=== PATIENT | male | born 1950 | race Caucasian/White ===

== ENCOUNTER 2017-02-03 14:06 | Emergency (ER) | payer BC, OTHER ==
[2017-02-03] MEDS ORDERED: Lidocaine 1% 50 ML MDV INJECT ONE (14:57)
--- NOTE | 2017-02-03 15:58 | CR ---
Left second finger: Four views of the left second finger were obtained. Fracture identified within the distal tuft of the second finger. Mild degenerative change noted within the PIP and DIP joint. Soft tissue swelling and injury is noted. No proximal bony abnormality otherwise seen. Impression: 1. Fracture within the distal tuft of the left second finger with soft tissue swelling/injury. 2. Incidental degenerative change. Diagnostic code #3
--- NOTE | 2017-02-03 16:06 | EDM.PDOC ---
ED HPI Skin/Rash - General Chief Complaint: Laceration Stated Complaint: LACERATION TO L INDEX FINGER Time Seen by Provider: 02/03/17 14:52 Source: Reports: Patient History Limitations: Reports: No limitations - History of Present Illness INITIAL COMMENTS - FREE TEXT/NARRATIVE: The patient presents with a laceration to this left index finger. The patient was using a table saw and he cut the left index finger. The tip is cut on the side. He is right handed. He thinks his tetanus was updated in October. Timing: Reports: still present Location, Skin: Reports: upper extremity, left (Index finger) Quality: Reports: Sharp Severity: severe Known Identified Source: yes Place of Occurrence: home Sick Contact: yes Associated Symptoms: Reports: no other symptoms - Related Data Allergies Allergy/AdvReac Type Severity Reaction Status Date / Time iodine Allergy Other Verified 02/03/17 14:34 sildenafil Allergy Other Verified 02/03/17 14:34 Home Meds: Ambulatory Orders Medication Instructions Recorded Confirmed Cholecalciferol (Vitamin D3) 500 mg PO DAILY 06/19/15 02/03/17 [Vitamin D3] Omeprazole Magnesium [Prilosec] 10 mg PO DAILY 06/19/15 02/03/17 Cephalexin [Keflex] 500 mg PO Q6HR #40 cap 02/03/17 ClonazePAM [KlonoPIN] 1 mg PO BEDTIME 02/03/17 02/03/17 oxyCODONE HCl/Acetaminophen 1 - 2 each PO Q6HR PRN #20 tablet 02/03/17 [Percocet 5-325 mg Tablet] Past Medical History Other HEENT History: wears eyeglasses Other Respiratory History: uses CPAP machine - Past Surgical History GI Surgical History: Reports: Hernia repair/other Musculoskeletal Surgical History: Reports: Other (see below) Other Musculoskeletal Surgeries/Procedures:: knee surgery Social & Family History - Tobacco Use Smoking Status *Q: Never Smoker - Caffeine Use Caffeine Use: Reports: Coffee - Recreational Drug Use Recreational Drug Use: No ED ROS GENERAL - Review of Systems Review Of Systems: See Below Constitutional: Reports: no symptoms HEENT: Reports: No symptoms Respiratory: Reports: No Symptoms Cardiovascular: Reports: No symptoms Endocrine: Reports: no symptoms GI/Abdominal: Reports: No symptoms : Reports: no symptoms Musculoskeletal: Reports: other (Left infex finger laceration) ED EXAM, SKIN/RASH Exam: See Below Exam Limited By: No limitations General Appearance: alert, no apparent distress Ears: normal external exam Nose: normal inspection Head: atraumatic, normocephalic Neck: normal inspection Respiratory/Chest: no respiratory distress, lungs clear, normal breath sounds Cardiovascular: regular rate, rhythm, no edema, no murmur Extremities: other (Left index finger has a laceration to the left distal finger. It is on the lateral edge of the nail. It is through the nail bed. He has good sensation to the part of the finger that is not cut. He can move the finger well.) ED SKIN PROCEDURES - Laceration/Wound Repair Left Finger Lac/wound length in cm: 2 Appearance: subcutaneous, irregular, clean, other (through the nail) Distal NVT: neuro & vascular intact, no tendon injury Anesthetic type: digital Local anesthesia - Lidocaine (Xylocaine): 1% plain Skin prep: saline Exploration/Debridement/Repair: wound explored, in a bloodless field, explored to base, other (Part of the nail needed to be removed) Closed with: sutures Suture size: 4-0 # of sutures: 6 Suture type: nylon, interrupted, simple Tetanus status addressed: Yes Complications: No Course - Vital Signs Last Recorded V/S: Last Vital Signs Temp 97.7 F 02/03/17 14:31 Pulse 63 02/03/17 14:31 Resp 16 02/03/17 14:31 BP 159/87 H 02/03/17 14:31 Pulse Ox 98 02/03/17 14:31 - Orders/Labs/Meds Meds: Medications Discontinued Medications Generic Name Dose Route Start Last Admin Trade Name Tj PRN Reason Stop Dose Admin Lidocaine HCl 50 ml 02/03/17 14:57 Xylocaine 1% INJECT 02/03/17 14:58 ONETIME ONE - Re-Assessments/Exams Free Text/Narrative Re-Assessment/Exam: 02/03/17 16:07 His x-ray shows he did get some of the bone. He has an open fracture. I sutured the wound. I will give him a shot of rocephin and get him on some keflex and something for pain. Departure - Departure Time of Disposition: 16:15 Disposition: Home, Self-Care 01 Condition: good Clinical Impression: Laceration of finger nail bed Qualifiers: Encounter type: initial encounter Qualified Code(s): S61.319A - Laceration without foreign body of unspecified finger with damage to nail, initial encounter Open fracture of finger of left hand Qualifiers: Encounter type: initial encounter Qualified Code(s): S62.609B - Fracture of unspecified phalanx of unspecified finger, initial encounter for open fracture Prescriptions: Cephalexin [Keflex] 500 mg PO Q6HR #40 cap oxyCODONE HCl/Acetaminophen [Percocet 5-325 mg Tablet] 1 - 2 each PO Q6HR PRN # 20 tablet PRN Reason: Pain Referrals: Tabatha Bray DO [Primary Care Provider] - 1 Week Lucas Love MD [Physician] - 1 Week Forms: ED Department Discharge Additional Instructions: Soak your finger in warm soapy water 2 times per day and apply antibiotic ointment after. Take the keflex 4 times per day. Take the percocet 1 to 2 pills every 6 hours as needed for pain. Follow up with Dr Love in 1 week. Please return if you are worse. Look for any sign of infection such as redness , swelling, pain or drainage.
[2017-02-03] MEDS ORDERED: cefTRIAXone 1 GM, Lidocaine 1% 2.1 ML IM SCH ×2 (16:30)
[2017-02-03 16:50] VITALS: BP 142/85
== END 2017-02-03 16:45 | disposition home or self-care (01) ==
LOC: JD.ED 14:06
DX: S62.631B Displaced fracture of distal phalanx of left index finger, initial encounter for open fracture (principal); W29.8XXA Contact with other powered hand tools and household machinery, initial encounter; Y92.009 Unspecified place in unspecified non-institutional (private) residence as the place of occurrence of the external cause; Z98.890 Other specified postprocedural states; Z79.899 Other long term (current) drug therapy; Z88.8 Allergy status to other drugs, medicaments and biological substances
CPT/HCPCS: 12001; 73140; 96372; 99283; J0696; 13132

== ENCOUNTER 2017-08-16 15:14 | Emergency (ER) | payer OTHER ==
[2017-08-16] MEDS ORDERED: Sodium Chloride 0.9% 1,000 ML IV SCH (16:30)
--- NOTE | 2017-08-16 16:34 | EDM.PDOC ---
ED HPI GENERAL MEDICAL PROBLEM - General Chief Complaint: Flank Pain Stated Complaint: LOWER BACK/GROIN PAIN Time Seen by Provider: 08/16/17 16:06 Source of Information: Reports: Patient, Family (), RN Notes Reviewed History Limitations: Reports: No Limitations - History of Present Illness INITIAL COMMENTS - FREE TEXT/NARRATIVE: The patient states that he developed low back pain that wrapped around his lower abdomen, bilaterally, to his suprapubic region, suddenly, around 09:30 this morning, while the patient was eating breakfast. The pain is made worse if he moves, but he has not identified any other modifiers. No recent fever, nausea , vomiting, constipation, diarrhea, or urinary symptoms. No prior similar symptoms. The patient's PCP is Dr. Bray at the [place]. 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 Bilateral Flank Pain Score (Numeric/FACES): 9 - Related Data Allergies Allergy/AdvReac Type Severity Reaction Status Date / Time iodine Allergy Other Verified 02/03/17 14:34 sildenafil Allergy Other Verified 02/03/17 14:34 Home Meds: Home Meds Cholecalciferol (Vitamin D3) [Vitamin D3] 500 mg PO DAILY 06/19/15 [History] Omeprazole Magnesium [Prilosec] 10 mg PO BID 06/19/15 [History] Past Medical History HEENT History: Reports: Impaired Vision Other HEENT History: wears eyeglasses Respiratory History: Reports: Sleep Apnea (nightly CPAP) Gastrointestinal History: Reports: GERD Musculoskeletal History: Reports: Arthritis Psychiatric History: Reports: PTSD, Other (See Below) (Insomnia) Endocrine/Metabolic History: Reports: Obesity/BMI 30+ Dermatologic History: Reports: Seborrheic Dermatitis - Past Surgical History HEENT Surgical History: Reports: Oral Surgery (Dental extractions) GI Surgical History: Reports: Hernia, Inguinal (bilateral x 2) Musculoskeletal Surgical History: Reports: Arthroscopic Knee Social & Family History - Family History Family Medical History: Noncontributory - Tobacco Use Smoking Status *Q: Never Smoker - Caffeine Use Caffeine Use: Reports: Coffee - Alcohol Use Alcohol Use History: Yes Alcohol Use Frequency: Rarely - Recreational Drug Use Recreational Drug Use: No - Living Situation & Occupation Living situation: Reports: , with Spouse 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) ED ROS GENERAL - Review of Systems Review Of Systems: See Below Constitutional: Reports: No Symptoms HEENT: Reports: Sinus Problem (sinusitis since Sep 2016) Respiratory: Reports: No Symptoms Cardiovascular: Reports: No Symptoms Endocrine: Reports: No Symptoms GI/Abdominal: Reports: No Symptoms : Reports: No Symptoms Musculoskeletal: Reports: No Symptoms Skin: Reports: No Symptoms Neurological: Reports: No Symptoms Psychiatric: Reports: No Symptoms Hematologic/Lymphatic: Reports: No Symptoms Immunologic: Reports: No Symptoms ED EXAM, GI/ABD - Physical Exam Exam: See Below Exam Limited By: No Limitations General Appearance: Alert, WD/WN, No Apparent Distress Eyes: Bilateral: Normal Appearance, EOMI Ears: Normal External Exam, Hearing Grossly Normal Nose: Normal Inspection, No Blood Throat/Mouth: Normal Inspection, Normal Lips, Normal Voice, No Airway Compromise Head: Atraumatic, Normocephalic Neck: Normal Inspection, Full Range of Motion Respiratory/Chest: No Respiratory Distress, Lungs Clear, Normal Breath Sounds, No Accessory Muscle Use Cardiovascular: Normal Peripheral Pulses, Regular Rate, Rhythm, No Gallop, No JVD, No Murmur, No Rub GI/Abdominal Exam: Normal Bowel Sounds, Soft, No Organomegaly, No Distention, No Abnormal Bruit, No Mass, Tender (Left lower quadrant only. Nontender elsewhere.), Other (Obese) (Male) Exam: Deferred Rectal (Males) Exam: Deferred Back Exam: Normal Inspection, Full Range of Motion, Other (Straight leg raise induces pain in the left lower quadrant, bilaterally). No: CVA Tenderness (L), CVA Tenderness (R), Paraspinal Tenderness, Vertebral Tenderness Extremities: Normal Inspection, Normal Range of Motion, No Pedal Edema, Normal Capillary Refill Neurological: Alert, Oriented, Normal Cognition, No Motor/Sensory Deficits Psychiatric: Normal Affect Skin Exam: Warm, Dry, Intact, Normal Color, No Rash Course - Vital Signs Last Recorded V/S: Last Vital Signs Temp 36.8 C 08/16/17 15:38 Pulse 80 08/16/17 19:49 Resp 16 08/16/17 19:49 BP 165/81 H 08/16/17 19:49 Pulse Ox 99 08/16/17 19:49 - Orders/Labs/Meds Labs: Laboratory Tests 08/16/17 08/16/17 08/16/17 Range/Units 16:40 16:40 16:49 WBC 6.82 (4.23-9.07) K/mm3 RBC 5.31 (4.63-6.08) M/mm3 Hgb 16.2 (13.7-17.5) gm/L Hct 46.7 (40.1-51.0) % MCV 87.9 (79.0-92.2) fl MCH 30.5 (25.7-32.2) pg MCHC 34.7 (32.2-35.5) g/dl RDW Std Deviation 41.8 (35.1-43.9) fL Plt Count 193 (163-337) K/mm3 MPV 10.1 (9.4-12.3) fl Neutrophils % (Manual) 55 (40-60) % Band Neutrophils % 0 (0-10) % Lymphocytes % (Manual) 25 (20-40) % Atypical Lymphs % 0 % Monocytes % (Manual) 11 H (2-10) % Eosinophils % (Manual) 6 (0.8-7.0) % Basophils % (Manual) 2 H (0.2-1.2) Myelocytes % 1 Platelet Estimate Adequate RBC Morph Comment Normal Sodium 142 (136-145) mEq/L Potassium 3.9 (3.5-5.1) mEq/L Chloride 104 (98-107) mEq/L Carbon Dioxide 26 (21-32) mEq/L Anion Gap 15.9 H (5-15) BUN 19 H (7-18) mg/dL Creatinine 1.3 (0.7-1.3) mg/dL Est Cr Clr Drug Dosing 67.59 mL/min Estimated GFR (MDRD) 55 (>60) mL/min BUN/Creatinine Ratio 14.6 (14-18) Glucose 93 (80-115) mg/dL Calcium 9.0 (8.5-10.1) mg/dL Total Bilirubin 0.7 (0.2-1.0) mg/dL AST 20 (15-37) U/L ALT 27 (16-63) U/L Alkaline Phosphatase 85 (46-116) U/L Total Protein 7.2 (6.4-8.2) g/dl Albumin 3.9 (3.4-5.0) g/dl Globulin 3.3 gm/dL Albumin/Globulin Ratio 1.2 (1-2) Lipase 139 (73-393) U/L Urine Color Yellow (Yellow) Urine Appearance Clear (Clear) Urine pH 6.0 (5.0-8.0) Ur Specific [place] 1.010 (1.005-1.030) Urine Protein Negative (Negative) Urine Glucose (UA) Negative (Negative) Urine Ketones Negative (Negative) Urine Occult Blood Negative (Negative) Urine Nitrite Negative (Negative) Urine Bilirubin Negative (Negative) Urine Urobilinogen 0.2 (0.2-1.0) Ur Leukocyte Esterase Negative (Negative) Urine RBC Not seen (0-5) /hpf Urine WBC 0-5 (0-5) /hpf Ur Epithelial Cells 0-5 (0-5) /hpf Urine Bacteria Not seen (FEW) /hpf Urine Mucus Not seen (FEW) /hpf Meds: Medications Discontinued Medications Generic Name Dose Route Start Last Admin Trade Name Freq PRN Reason Stop Dose Admin Diatrizoate Meglum/Diatrizoate Sod 90 ml 08/16/17 17:54 08/16/17 18:08 Gastrografin 37% PO 08/16/17 17:55 90 ml ONETIME ONE Administration Diphenhydramine HCl 50 mg 08/16/17 17:11 08/16/17 17:39 Benadryl IVPUSH 08/16/17 17:12 50 mg ONETIME ONE Administration Sodium Chloride 1,000 mls @ 150 mls/hr 08/16/17 16:30 08/16/17 16:45 Normal Saline IV 150 mls/hr ASDIRECTED PERRI Administration Sodium Chloride 100 mls @ 60 mls/hr 08/16/17 18:00 08/16/17 18:09 Normal Saline IV 60 mls/hr ASDIRECTED PERRI Administration Iopamidol 125 ml 08/16/17 17:54 08/16/17 18:08 Isovue-300 (61%) IVPUSH 08/16/17 17:55 125 ml ONETIME ONE Administration Methylprednisolone Sodium Succinate 125 mg 08/16/17 17:11 08/16/17 17:40 Solu-Medrol IVPUSH 08/16/17 17:12 125 mg ONETIME ONE Administration Sodium Chloride 10 ml 08/16/17 17:54 08/16/17 18:08 Saline Flush FLUSH 08/16/17 17:55 10 ml ONETIME ONE Administration - Re-Assessments/Exams Free Text/Narrative Re-Assessment/Exam: 08/16/17 17:12 The patient reports an allergy to iodinated contrast. When asked about this, he states that he underwent a coronary angiogram in [place] around 2009. About 1 hour later, his face and eyes swelled, and he was itchy. He was given an injection of some medicine, which resolved his symptoms, however, they recurred about 90 minutes later. He then came to this ED, where he was again given an injection, and his symptoms resolved. The patient acknowledges that he received other medications besides iodinated contrast when he had the coronary angiogram. He states that at no other time before or since had he ever received iodinated contrast, such as for an IV pyelogram or CT scan. He also states that he has not received any narcotics since then, either. I suspect that the patient's reaction in 2009 was not an allergic reaction to iodinated contrast, as he had not previously been exposed to it. Further, his symptoms would not have resolved quickly after a single injection of a medication if it were a genuine allergic reaction. I think it is more likely that he suffered a reaction to an opioid given at the time of the coronary angiogram, not a genuine allergic reaction, and that he was given Benadryl, which would treat the histamine release caused by opioids. I discussed this with the patient, and advised that we proceed with the iodinated contrast, however, I also recommended that we pretreat with IV Benadryl and IV Solu- Medrol. The patient has agreed. 08/16/17 19:09 CT of the abdomen and pelvis with oral and IV contrast is read by Dr. Camacho as: 1. Small area of bowel wall thickening having an apple core appearance within the sigmoid colon. This may represent spasm although difficult to exclude neoplasm. Sigmoidoscopy strongly recommended to hopefully exclude neoplasm. 2. Other incidental findings. Nothing acute is seen. 08/16/17 19:20 The above was discussed with Dr. Shen, who can see the patient as early as tomorrow, to arrange for colonoscopy with biopsies. The above was then discussed with the patient and his . He suffered no adverse effects from the iodinated contrast, virtually confirming that he is not allergic to iodinated contrast. As above, I suspect that the reaction that he suffered in 2009 was to an opioid. I am therefore not recommending that he not be prescribed any opioids. Departure - Departure Time of Disposition: 19:22 Disposition: Home, Self-Care 01 Condition: Good Clinical Impression: Left lower quadrant abdominal pain of unknown etiology, Sigmoid stricture - Discharge Information Instructions: Abdominal Pain, Adult, [id number] Referrals: PCP,None [Primary Care Provider] - Alirio Shen MD [Physician] - Forms: ED Department Discharge Additional Instructions: You were seen in the emergency room for pain felt in your lower back, wrapping around to your lower abdomen. On physical examination, you had tenderness to your lower left abdomen. Workup in the ER included blood work, a urinalysis, and a CT scan of your abdomen and pelvis. Your blood work and urine were normal, however, the CT scan found a small area of bowel wall thickening having an apple core appearance within the sigmoid colon. This finding is concerning for colon cancer, although could be due to something else. Follow-up with the Surgeon Dr. Shen at the next available appointment, to arrange for a colonoscopy with biopsy. Take [id number] Tylenol or ibuprofen as needed for discomfort. If any other problems, please do not hesitate to return to the ER.
[2017-08-16] MEDS ORDERED: diphenhydrAMINE 50 MG/ML SDV IVPUSH ONE (17:11)
[2017-08-16] MEDS ORDERED: methylPREDNISolone Sodium Succinate 125 MG/2 ML SDV IVPUSH ONE (17:11)
[2017-08-16] MEDS ORDERED: Iopamidol 612 MG/ML 150 ML Bottle IVPUSH ONE (17:54)
[2017-08-16] MEDS ORDERED: Sodium Chloride 0.9% 10 ML Syringe FLUSH ONE (17:54)
[2017-08-16] MEDS ORDERED: Diatrizoate Meglumine/Diatrizoate Sodium 37% 120 ML Bottle PO ONE (17:54)
[2017-08-16] MEDS ORDERED: Sodium Chloride 0.9% 100 ML IV SCH (18:00)
--- NOTE | 2017-08-16 18:50 | CT ---
CT abdomen and pelvis Technique: Multiple axial sections were obtained from the top the liver inferiorly through the pubic symphysis. Intravenous and oral contrast was utilized. Delayed images were also obtained through the bladder. Findings: Small portion of the visualized lung bases shows nothing acute. Small low-density finding is seen within the right lobe of the liver measuring approximately 1 cm having Hounsfield unit measurements of a cyst. Smaller low-density finding is noted within the liver measuring 5 mm which is too small to characterize by Hounsfield unit measurements but most likely represents an additional cyst. Gallbladder shows no calcified gallstones. Spleen appears within normal limits. Adrenal glands show no nodule. Kidneys show symmetric contrast enhancement without hydronephrosis or mass. Aorta shows ectasia without aneurysmal dilatation. Atherosclerotic calcification is also seen within the aorta. Pancreas is within normal limits. No retroperitoneal adenopathy or mesenteric abnormalities are seen. Appendix is seen which appears normal. Surgical material is seen within the left groin. Prostate gland is mildly prominent which contains calcifications. No diverticulosis or diverticulitis is seen. There is a small focal area of bowel wall thickening seen within the sigmoid colon having a circumferential apple core lesion appearance and difficult to exclude neoplasm. No additional abnormality is seen within the colon. No free fluid or inflammatory change is seen. Moderately large hiatal hernia is present. Delayed images shows contrast within both distal ureters and within the bladder. Bone window settings were reviewed which shows mild scattered degenerative change within the spine. Impression: 1. Small area of bowel wall thickening having an apple core appearance within the sigmoid colon. This may represent spasm although difficult to exclude neoplasm. Sigmoidoscopy strongly recommended to hopefully exclude neoplasm. 2. Other incidental findings. Nothing acute is seen. Diagnostic code #9
[2017-08-16 19:49] VITALS: BP 165/81
== END 2017-08-16 19:30 | disposition home or self-care (01) ==
LOC: JD.ED 15:14
DX: K56.699 Other intestinal obstruction unspecified as to partial versus complete obstruction (principal); Z79.899 Other long term (current) drug therapy; Z88.8 Allergy status to other drugs, medicaments and biological substances
CPT/HCPCS: 36415; 74177; 80053; 81001; 83690; 85025; 96361; 96374; 96375; 99284; J1200; J2930; J7030; J7040; J7050; Q9963; Q9967

== ENCOUNTER 2018-12-12 17:49 | Emergency (ER) | payer OTHER ==
[2018-12-12 18:41] VITALS: BP 175/88
--- NOTE | 2018-12-12 19:03 | EDM.PDOC ---
ED HPI GENERAL MEDICAL PROBLEM - General Chief Complaint: Genitourinary Problem Stated Complaint: POSS BLADDER INFECTION Time Seen by Provider: 12/12/18 18:53 - History of Present Illness INITIAL COMMENTS - FREE TEXT/NARRATIVE: 68-year-old male presents emergency room with burning and frequency with urination. This is been going on for the last couple of days. He is not certain he's been able to empty completely. He's felt a little warm but no fevers or chills. He has some discomfort with urination. No significant flank discomfort or back pain. - Related Data Allergies Allergy/AdvReac Type Severity Reaction Status Date / Time iodine Allergy Other Verified 10/31/18 12:40 sildenafil Allergy Other Verified 10/31/18 12:40 seafood Allergy Hives Uncoded 10/31/18 12:40 Home Meds: Home Meds Cholecalciferol (Vitamin D3) [Vitamin D3] 500 mg PO DAILY 06/19/15 [History] Omeprazole Magnesium [Prilosec] 10 mg PO BID 06/19/15 [History] FA/Lycopene/Lut/MV,Ca,Iron,Min [Centrum] 1 tab PO DAILY 10/31/18 [History] Meclizine HCl 25 mg PO BID PRN #20 tab.chew 10/31/18 [Rx] Ondansetron [Zofran ODT] 4 mg PO Q6H PRN #12 tab.dis 10/31/18 [Rx] Nitrofurantoin Monohyd/M-Cryst [Macrobid 100 mg Capsule] 100 mg PO Q12H #14 capsule 12/12/18 [Rx] Past Medical History HEENT History: Reports: Impaired Vision Other HEENT History: wears eyeglasses Respiratory History: Reports: Sleep Apnea Other Respiratory History: uses CPAP machine Gastrointestinal History: Reports: GERD Genitourinary History: Reports: Pyelonephritis, UTI, Recurrent Musculoskeletal History: Reports: Arthritis Psychiatric History: Reports: PTSD, Other (See Below) Endocrine/Metabolic History: Reports: Obesity/BMI 30+ Dermatologic History: Reports: Seborrheic Dermatitis - Past Surgical History HEENT Surgical History: Reports: Oral Surgery GI Surgical History: Reports: Hernia, Inguinal Musculoskeletal Surgical History: Reports: Arthroscopic Knee Social & Family History - Family History Family Medical History: Noncontributory - Caffeine Use Caffeine Use: Reports: Coffee - Living Situation & Occupation Living situation: Reports: , with Spouse 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 Denies: Flank Pain, Hematuria Musculoskeletal: Reports: No Symptoms Skin: Reports: No Symptoms Neurological: Reports: No Symptoms ED EXAM, RENAL/ - Physical Exam Exam: See Below Exam Limited By: Uncooperative General Appearance: Alert, No Apparent Distress Head: Atraumatic, Normocephalic Neck: Normal Inspection, Supple, Non-Tender, Full Range of Motion Respiratory/Chest: No Respiratory Distress, Lungs Clear, Normal Breath Sounds Cardiovascular: Regular Rate, Rhythm, No Edema, No Murmur GI/Abdominal: Normal Bowel Sounds, Soft, Non-Tender, Other (Suprapubic discomfort) Back Exam: Normal Inspection. No: CVA Tenderness (L), CVA Tenderness (R) Course - Vital Signs Last Recorded V/S: Last Vital Signs Temp 37.7 C 12/12/18 18:39 Pulse 88 12/12/18 18:39 Resp 18 12/12/18 18:39 BP 175/88 H 12/12/18 18:39 Pulse Ox 100 12/12/18 18:39 - Orders/Labs/Meds Orders: Active Orders 24 hr Category Date Time Status CULTURE URINE [RM] Stat Lab 12/12/18 18:37 Received Labs: Laboratory Tests 12/12/18 Range/Units 18:37 Urine Color Yellow (Yellow) Urine Appearance Cloudy H (Clear) Urine pH 6.0 (5.0-8.0) Ur Specific [place] > or = 1.030 (1.005-1.030) Urine Protein 2+ H (Negative) Urine Glucose (UA) Negative (Negative) Urine Ketones Negative (Negative) Urine Occult Blood 3+ H (Negative) Urine Nitrite Negative (Negative) Urine Bilirubin Negative (Negative) Urine Urobilinogen 0.2 (0.2-1.0) Ur Leukocyte Esterase 1+ H (Negative) Urine RBC >100 H (0-5) /hpf Urine WBC 40-50 H (0-5) /hpf Ur Epithelial Cells 0-5 (0-5) /hpf Urine Bacteria Few (FEW) /hpf Urine Mucus Not seen (FEW) /hpf - Re-Assessments/Exams Free Text/Narrative Re-Assessment/Exam: 12/12/18 19:58 Gentleman was bladder scanned no postvoid residual urinalysis is strongly suggestive of infectious process we'll start him on Macrobid Departure - Departure Time of Disposition: 19:58 Disposition: Home, Self-Care 01 Clinical Impression: UTI (urinary tract infection) - Discharge Information Prescriptions: Nitrofurantoin Monohyd/M-Cryst [Macrobid 100 mg Capsule] 100 mg PO Q12H #14 capsule Referrals: Mckenzie Rocha MD [Primary Care Provider] - Forms: ED Department Discharge Additional Instructions: Return to the emergency room with any questions problems worsening symptoms. Take the antibiotics as directed. Follow-up in the clinic 3-5 days after finishing the antibiotics. - My Orders Last 24 Hours: My Active Orders 12/12/18 18:37 CULTURE URINE [RM] Stat - Assessment/Plan Last 24 Hours: My Active Orders 12/12/18 18:37 CULTURE URINE [RM] Stat
== END 2018-12-12 20:14 | disposition home or self-care (01) ==
LOC: JD.ED 17:49
DX: N39.0 Urinary tract infection, site not specified (principal); Z91.013 Allergy to seafood; Z88.8 Allergy status to other drugs, medicaments and biological substances
CPT/HCPCS: 51798; 81001; 87086; 87088; 87186; 99283

== ENCOUNTER 2018-12-13 16:34 | Inpatient (IN) | payer OTHER, MEDICARE ==
[2018-12-13] MEDS ORDERED: Metoclopramide 10 MG/2 ML SDV IVPUSH ONE (17:08)
[2018-12-13] MEDS ORDERED: Acetaminophen 325 MG Tab PO ONE (17:12)
--- NOTE | 2018-12-13 17:13 | EDM.PDOC ---
ED HPI GENERAL MEDICAL PROBLEM - General Chief Complaint: Genitourinary Problem Stated Complaint: [facility]ABDOMINAL PAIN Time Seen by Provider: 12/13/18 17:07 Source of Information: Reports: Patient, Family (spouse) History Limitations: Reports: No Limitations - History of Present Illness INITIAL COMMENTS - FREE TEXT/NARRATIVE: 68-year-old male presented to the ED last night with urinary urgency frequency and dysuria. Diagnosed with urinary tract infection and was started on Macrobid 100 mg twice a day. He states that around mid 90s he started to develop significant rigors and chills which continue until seen in the ED now. He had a little bit of breakfast which she brought up around 1:00 today and has not been able to keep anything down since. Continues to have dry heaves. No diarrhea. He' s had riders and severe chills today as well. Patient most likely has significant prostatitis and clinically has bilateral pyelonephritis. History of BPH. No history of previous urinary tract infections. Patient has appreciated blood in his urine. He denies any cough or sputum production. Onset: Sudden Onset Date: 12/11/18 Duration: Day(s):, Constant, Getting Worse Location: Reports: Other (Urinary urgency frequency and dysuria now with fever chills and rigors.) Quality: Reports: Other (Urinary frequency urgency and dysuria) Severity: Severe (with severe burning with urination) Improves with: Reports: None Worsens with: Reports: None Context: Reports: Other (Carol's occurrence 2 days ago). Denies: Activity, Exercise, Lifting, Sick Contact, Trauma Associated Symptoms: Reports: No Other Symptoms, Fever/Chills (Nausea and vomiting today associated with fever chills and rigors), Loss of Appetite, Malaise, Nausea/Vomiting, Weakness. 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: Reports: Other (see below) (Nothing will stay down) Abdomen Pain Score (Numeric/FACES): 6 - Related Data Allergies Allergy/AdvReac Type Severity Reaction Status Date / Time iodine Allergy Other Verified 12/13/18 00:10 sildenafil Allergy Other Verified 12/13/18 00:10 seafood Allergy Hives Uncoded 12/13/18 00:10 Home Meds: Home Meds Cholecalciferol (Vitamin D3) [Vitamin D3] 500 mg PO DAILY 06/19/15 [History] Omeprazole Magnesium [Prilosec] 10 mg PO BID 06/19/15 [History] FA/Lycopene/Lut/MV,Ca,Iron,Min [Centrum] 1 tab PO DAILY 10/31/18 [History] Nitrofurantoin Monohyd/M-Cryst [Macrobid 100 mg Capsule] 100 mg PO Q12H #14 capsule 12/12/18 [Rx] Past Medical History HEENT History: Reports: Impaired Vision Other HEENT History: wears eyeglasses Respiratory History: Reports: Sleep Apnea Other Respiratory History: uses CPAP machine Gastrointestinal History: Reports: GERD Genitourinary History: Reports: Pyelonephritis, UTI, Recurrent Musculoskeletal History: Reports: Arthritis Psychiatric History: Reports: PTSD, Other (See Below) Endocrine/Metabolic History: Reports: Obesity/BMI 30+ Dermatologic History: Reports: Seborrheic Dermatitis - Past Surgical History HEENT Surgical History: Reports: Oral Surgery GI Surgical History: Reports: Hernia, Inguinal Musculoskeletal Surgical History: Reports: Arthroscopic Knee Social & Family History - Family History Family Medical History: Noncontributory - Caffeine Use Caffeine Use: Reports: None - Living Situation & Occupation Living situation: Reports: , with Spouse 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 Denies: Wheezing, Pleuritic Chest Pain, Cough, Sputum, Hemoptysis Cardiovascular: Reports: Dyspnea on Exertion, Lightheadedness. Denies: Chest Pain, Blood Pressure Problem Endocrine: Reports: Fatigue GI/Abdominal: Reports: Abdominal Pain, Decreased Appetite (Nothing will stay down today), Nausea, Vomiting. Denies: Constipation (Epigastric pain from recurrent vomiting.), Diarrhea : Reports: Dysuria, Frequency, Urgency, Other (Diagnosed with GRIS last night in the ED. Placed on Macrobid 100 mg twice a day which she's had one pill. The urinalysis grew out gram-negative rods 80-90,000 colony-forming units per ml. Likely Escherichia coli. Of note he reports no symptoms of prostatism. He states he may get up once at night to void only. Stream is good.) Musculoskeletal: Reports: Muscle Pain Skin: Reports: No Symptoms (Generalized myalgia) Neurological: Reports: Dizziness, Weakness Psychiatric: Reports: No Symptoms (Instituted fever and chills) Hematologic/Lymphatic: Reports: No Symptoms Immunologic: Reports: No Symptoms ED EXAM, RENAL/ - Physical Exam Exam: See Below Exam Limited By: No Limitations General Appearance: Alert, WD/WN, Moderate Distress, Other (Feels very warm to palpation temp jitters 103.2. Pulse is 96. Respiratory is 22 sets only 90% on room air.) Eye Exam: Bilateral Eye: Normal Inspection Ears: Normal TMs Throat/Mouth: Normal Inspection, Normal Lips, Normal Oropharynx, Normal Voice ( Tongue is mildly dry and coated), Other Head: Atraumatic, Normocephalic Neck: Normal Inspection, Supple, Non-Tender, Full Range of Motion. No: Lymphadenopathy (L), Lymphadenopathy (R) Respiratory/Chest: Lungs Clear, No Accessory Muscle Use, Chest Non-Tender, Respiratory Distress (Dictated make 22-26/m with O2 sats of 90% on room air) Cardiovascular: Regular Rate, Rhythm, No Edema (Resting tachycardia of 10 2/m), No Gallop, No Murmur, No Rub, Tachycardia GI/Abdominal: Normal Bowel Sounds, Soft, Non-Tender, No Organomegaly, No Abnormal Bruit, No Mass, Pelvis Stable (Male) Exam: No Hernia. No: Circumcised Back Exam: CVA Tenderness (L), CVA Tenderness (R) Extremities: Normal Inspection, Normal Range of Motion, Non-Tender, No Pedal Edema, Normal Capillary Refill Neurological: Alert, Oriented, CN II-XII Intact, Normal Cognition, Normal Gait, No Motor/Sensory Deficits Psychiatric: Normal Affect, Normal Mood, Other Skin Exam: Warm (Very warm to palpation), Dry, Intact, Normal Color, No Rash EKG INTERPRETATION EKG Date: 12/13/18 Time: 17:15 Rhythm: NSR Rate (Beats/Min): 90 [place]: Normal P-Wave: Present (First-degree AV block.) QRS: Other (Early R-wave transition consider septal hypertrophy pattern) ST-T: Normal QT: Normal EKG Interpretation Comments: Borderline ECG Course - Vital Signs Last Recorded V/S: Last Vital Signs Temp 38.8 C H 12/13/18 16:49 Pulse 96 12/13/18 16:49 Resp 22 H 12/13/18 16:49 BP 147/82 H 12/13/18 16:49 Pulse Ox 90 L 12/13/18 16:49 - Orders/Labs/Meds Orders: Active Orders 24 hr Category Date Time Status Admission Status [Patient Status] [ADT] Routine ADT 12/13/18 19:14 Ordered EKG Documentation Completion [RC] STAT Care 12/13/18 17:10 Active CULTURE BLOOD [BC] Stat Lab 12/13/18 17:31 Received CULTURE BLOOD [BC] Stat Lab 12/13/18 17:41 Received URINALYSIS W/O MICROSCOPIC [UA W/O MICROSCOPIC] [URIN] Lab 12/13/18 18:41 Received Stat Dextrose 5%-0.9% NaCl [Dextrose 5%-Normal Saline] 1,000 Med 12/13/18 17:15 Active ml IV ASDIRECTED Blood Culture x2 Reflex Set [OM.PC] Stat Oth 12/13/18 17:10 Ordered Medication Orders Dextrose/Sodium Chloride (Dextrose 5%-Normal Saline) 1,000 mls @ 250 mls/hr IV ASDIRECTED PERRI Last Admin: 12/13/18 18:14 Dose: 250 mls/hr Labs: Laboratory Tests 12/13/18 12/13/18 12/13/18 Range/Units 17:31 17:31 17:31 WBC 17.46 H (4.23-9.07) K/mm3 RBC 4.94 (4.63-6.08) M/mm3 Hgb 15.1 (13.7-17.5) gm/L Hct 43.9 (40.1-51.0) % MCV 88.9 (79.0-92.2) fl MCH 30.6 (25.7-32.2) pg MCHC 34.4 (32.2-35.5) g/dl RDW Std Deviation 42.7 (35.1-43.9) fL Plt Count 198 (163-337) K/mm3 MPV 10.3 (9.4-12.3) fl Neutrophils % (Manual) 85 H (40-60) % Band Neutrophils % 1 (0-10) % Lymphocytes % (Manual) 4 L (20-40) % Atypical Lymphs % 0 % Monocytes % (Manual) 10 (2-10) % Eosinophils % (Manual) 0 L (0.8-7.0) % Basophils % (Manual) 0 L (0.2-1.2) Platelet Estimate Adequate RBC Morph Comment Normal Sodium 135 L (136-145) mEq/L Potassium 3.8 (3.5-5.1) mEq/L Chloride 101 (98-107) mEq/L Carbon Dioxide 24 (21-32) mEq/L Anion Gap 13.8 (5-15) BUN 15 (7-18) mg/dL Creatinine 1.5 H (0.7-1.3) mg/dL Est Cr Clr Drug Dosing 57.75 mL/min Estimated GFR (MDRD) 46 (>60) mL/min BUN/Creatinine Ratio 10.0 L (14-18) Glucose 179 H (80-115) mg/dL Lactic Acid (0.4-2.0) mmol/L Calcium 9.0 (8.5-10.1) mg/dL Magnesium 1.7 L (1.8-2.4) mg/dl Total Bilirubin 1.8 H (0.2-1.0) mg/dL AST 29 (15-37) U/L ALT 27 (16-63) U/L Alkaline Phosphatase 92 (46-116) U/L C-Reactive Protein 20.8 H* (<1.0) mg/dL NT-Pro-B Natriuret Pep 353 H (0-125) pg/mL Total Protein 7.5 (6.4-8.2) g/dl Albumin 3.6 (3.4-5.0) g/dl Globulin 3.9 gm/dL Albumin/Globulin Ratio 0.9 L (1-2) 12/13/18 Range/Units 17:41 WBC (4.23-9.07) K/mm3 RBC (4.63-6.08) M/mm3 Hgb (13.7-17.5) gm/L Hct (40.1-51.0) % MCV (79.0-92.2) fl MCH (25.7-32.2) pg MCHC (32.2-35.5) g/dl RDW Std Deviation (35.1-43.9) fL Plt Count (163-337) K/mm3 MPV (9.4-12.3) fl Neutrophils % (Manual) (40-60) % Band Neutrophils % (0-10) % Lymphocytes % (Manual) (20-40) % Atypical Lymphs % % Monocytes % (Manual) (2-10) % Eosinophils % (Manual) (0.8-7.0) % Basophils % (Manual) (0.2-1.2) Platelet Estimate RBC Morph Comment Sodium (136-145) mEq/L Potassium (3.5-5.1) mEq/L Chloride (98-107) mEq/L Carbon Dioxide (21-32) mEq/L Anion Gap (5-15) BUN (7-18) mg/dL Creatinine (0.7-1.3) mg/dL Est Cr Clr Drug Dosing mL/min Estimated GFR (MDRD) (>60) mL/min BUN/Creatinine Ratio (14-18) Glucose (80-115) mg/dL Lactic Acid 1.4 (0.4-2.0) mmol/L Calcium (8.5-10.1) mg/dL Magnesium (1.8-2.4) mg/dl Total Bilirubin (0.2-1.0) mg/dL AST (15-37) U/L ALT (16-63) U/L Alkaline Phosphatase (46-116) U/L C-Reactive Protein (<1.0) mg/dL NT-Pro-B Natriuret Pep (0-125) pg/mL Total Protein (6.4-8.2) g/dl Albumin (3.4-5.0) g/dl Globulin gm/dL Albumin/Globulin Ratio (1-2) Meds: Medications Generic Name Dose Route Start Last Admin Trade Name Freq PRN Reason Stop Dose Admin Dextrose/Sodium Chloride 1,000 mls @ 250 mls/hr 12/13/18 17:15 12/13/18 18:14 Dextrose 5%-Normal Saline IV 250 mls/hr ASDIRECTED PERRI Administration Discontinued Medications Generic Name Dose Route Start Last Admin Trade Name Freq PRN Reason Stop Dose Admin Acetaminophen 975 mg 12/13/18 17:12 12/13/18 18:15 Tylenol PO 12/13/18 17:13 975 mg NOW ONE Administration Levofloxacin/Dextrose 750 mg/ 150 mls @ 100 mls/hr 12/13/18 17:19 12/13/18 18 :19 Premix IV 12/13/18 18:48 100 mls/hr ONETIME ONE Administration Metoclopramide HCl 10 mg 12/13/18 17:08 12/13/18 18:18 Reglan IVPUSH 12/13/18 17:09 10 mg ONETIME ONE Administration - Radiology Interpretation Free Text/Narrative:: 68-year-old male returns to the ED after being seen through the ED last evening. He was diagnosed with urinary tract infection which almost always means he has a prostatitis. He was started on Macrobid 100 mg twice a day of which she's had one pill. Patient started having fever chills and rigors around midnight which have persisted throughout the day. He did have a little bit of breakfast but vomited it up about 2 hours later. He should has now developed a temperature of 104 with rigors and chills. He has bilateral backache and bilateral costovertebral angle tenderness. Clinically he is suffering your urosepsis from bilateral pilon nephritis. Plan septic workup will be completed. He will be given Levaquin 750 mg IV and this will be followed by Rocephin 2 g IV. The urinalysis from last night is growing out 80-90,000 colony-forming units of gram-negative jamal presumably Escherichia coli. - Re-Assessments/Exams Free Text/Narrative Re-Assessment/Exam: 12/13/18 19:18 Labs reveal an elevated white count at 17.46 with a left shift of 85% neutrophils and 1% band cells. Hemoglobin is 15.1 with hematocrit of 43.9. MCV is 88.9. Platelet count is 198,000. Sodium mildly low at 135. Potassium is 3.8. Toward 101 with a bicarbonate of 24. And a gap is 13.8. BUN is 15 with a creatinine of 1.5. GFR is 46 i.e. stage III chronic kidney disease BUN/creatinine ratio is 10.0. Glucose is 179. Lactic acid 1.4. Calcium is 9.0 with magnesium of 1.7. Total bilirubin 1.8. AST is 29 with an ALT of 27. Alk phosphatase is 92. Active protein is 20.8. BNP is 353. Total protein is 7.5 and albumin fraction of 3.6. 12/13/18 19:12 Spoke with novelty balloon assembler and packer hospitalist Dr. Neville. He has accepted this patient to the med surgery floor on telemetry. He still has Levaquin running. My plan was to give him 2 g of Rocephin after this to make sure that we have complete coverage of her neck tract infection pathogens. Culture should be back with sensitivity tomorrow. Departure - Departure Time of Disposition: 19:20 Disposition: Admitted As Inpatient 64 Condition: Fair Clinical Impression: Acute febrile illness, Nausea and vomiting in adult patient Sepsis Qualifiers: Sepsis type: Escherichia coli Qualified Code(s): A41.51 - Sepsis due to Escherichia coli [E. coli] Urinary tract infection Qualifiers: Urinary tract infection type: acute pyelonephritis Qualified Code(s): N10 - Acute pyelonephritis - Discharge Information *PRESCRIPTION DRUG MONITORING PROGRAM REVIEWED*: Not Applicable *COPY OF PRESCRIPTION DRUG MONITORING REPORT IN PATIENT CHOCO: Not Applicable Referrals: Mckenzie Rocha MD [Primary Care Provider] - Forms: ED Department Discharge - My Orders Last 24 Hours: My Active Orders 12/13/18 17:10 EKG Documentation Completion [RC] STAT Blood Culture x2 Reflex Set [OM.PC] Stat 12/13/18 17:15 Dextrose 5%-0.9% NaCl [Dextrose 5%-Normal Saline] 1,000 ml IV ASDIRECTED 12/13/18 17:31 CULTURE BLOOD [BC] Stat 12/13/18 17:41 CULTURE BLOOD [BC] Stat 12/13/18 18:41 URINALYSIS W/O MICROSCOPIC [UA W/O MICROSCOPIC] [URIN] Stat 12/13/18 19:14 Admission Status [Patient Status] [ADT] Routine - Assessment/Plan Last 24 Hours: My Active Orders 12/13/18 17:10 EKG Documentation Completion [RC] STAT Blood Culture x2 Reflex Set [OM.PC] Stat 12/13/18 17:15 Dextrose 5%-0.9% NaCl [Dextrose 5%-Normal Saline] 1,000 ml IV ASDIRECTED 12/13/18 17:31 CULTURE BLOOD [BC] Stat 12/13/18 17:41 CULTURE BLOOD [BC] Stat 12/13/18 18:41 URINALYSIS W/O MICROSCOPIC [UA W/O MICROSCOPIC] [URIN] Stat 12/13/18 19:14 Admission Status [Patient Status] [ADT] Routine
[2018-12-13] MEDS ORDERED: Dextrose 5%-0.9% NaCl 1,000 ML IV SCH (17:15)
[2018-12-13] MEDS ORDERED: Levofloxacin/Dextrose 5%-Water 750 MG in Premix Bag 1 BAG IV ONE (17:19)
[2018-12-13] MEDS ORDERED: Promethazine 6.25 MG in Sodium Chloride 0.9% 50 ML IV PRN (20:52)
[2018-12-13] MEDS ORDERED: LORazepam 2 MG/ML SDV IVPUSH PRN (20:52)
[2018-12-13] MEDS ORDERED: Ondansetron 4 MG/2 ML SDV IV PRN (20:52)
[2018-12-13] MEDS ORDERED: hydrALAZINE 20 MG/ML SDV IVPUSH PRN (20:52)
[2018-12-13] MEDS ORDERED: Polyethylene Glycol 3350 Powder 17 GM Packet PO PRN (20:52)
[2018-12-13] MEDS ORDERED: Docusate Sodium 100 MG Cap PO PRN (20:52)
[2018-12-13] MEDS ORDERED: Acetaminophen/HYDROcodone 325-5 MG Tab PO PRN (20:52)
[2018-12-13] MEDS ORDERED: Bisacodyl 5 MG Tab PO PRN (20:52)
[2018-12-13] MEDS ORDERED: Albuterol/Ipratropium 3.0-0.5 MG/3 ML Neb Soln NEB PRN (20:52)
[2018-12-13] MEDS ORDERED: HYDROmorphone 1 MG/ML Syringe IVPUSH PRN (20:52)
[2018-12-13] MEDS ORDERED: LORazepam 2 MG/ML SDV IV PRN (20:52)
[2018-12-13] MEDS ORDERED: Metoprolol Tartrate 5 MG/5 ML SDV IVPUSH PRN (20:52)
[2018-12-13] MEDS ORDERED: Temazepam 7.5 MG Cap PO PRN (20:52)
[2018-12-13] MEDS ORDERED: Piperacillin/Tazobactam 4.5 GM in Sodium Chloride 0.9% 100 ML IV SCH (21:00)
[2018-12-13] MEDS ORDERED: Magnesium Oxide 400 MG Tab PO ONE (21:00)
[2018-12-13] MEDS ORDERED: Acetaminophen/Butalbital/Caffeine 325-50-40 MG Tab PO PRN (21:02)
[2018-12-13] MEDS ORDERED: Piperacillin/Tazobactam 4.5 GM in Sodium Chloride 0.9% 100 ML IV ONE (21:30)
[2018-12-13 21:45] LABS: HEMOGLOBIN A1C 6.1 % (4.50-6.20)
[2018-12-13 21:52] LABS: VITAMIN D,25-HYDROXY 66.8 ng/ml (30.0-100.0)
--- NOTE | 2018-12-13 22:07 | PCM.SN ---
- Free Text/Narrative Note: Patient seen and examined with at bedside. He has been having urinary frequency and dysuria. He was seen yesterday in ED and subsequently diagnosed with UTI. He was discharged with oral Macrobid 100 mg po BID but he did not respond to it. He has now developed fever, chills, malaise and reduced appetite. He denies having enlarged prostate but he was diagnosed sometime in the past. However he was not on any maintenance medications. His initial work up showed a CBC remarkable for WBC of 17.46 with Neutrophils of 85%. His CRP was 20.8. His chemistry is significant for NA of 135, Cr of 1.5 , Bs of 179, Mg of 1.7. Total Bilirubin of 1.8 and ProBNP of 353. In ED he had a temperature of 38.8C, with RR in the 20s. He was sating bet 90-94% on RA. His blood pressures have been fairly elevated. On physical examination, he looked comfortable not ill appearing. His lungs were clear and normal heart sounds w/o murmur or gallops. He was negative for bilateral CVA on manual palpation. On exam: he had suprapubic tenderness on palpation. His prostate was moderately enlarged, smooth, non-tender and round. His UA shows GNR organism and already received a one time dose of 750 mg IV Levaquin in ED. At this point, he clearly meets criteria for Sepsis (Fever, Leukocytosis, Tachypnea plus UTI). We will add IV Zosyn 4.5 mg Q6H plus oral probiotic for pharmacy to dose. Viral Panel, baseline chest x-ray and request for abdominal CT scan r/o intra-abdominal/pelvic abnormality per patient and 's request. We will order Thyroid Panel, Vit D level, Procalcitonin and screen for diabetes. Flomax 0.4 mg po BID for alpha blockade.
[2018-12-13] MEDS ORDERED: Tamsulosin 0.4 MG Cap.ER PO ONE (22:11)
[2018-12-13] MEDS: Saccharomyces Boulardii (Probiotic) 250 MG Cap PO SCH (22:28)
[2018-12-13] MEDS: Potassium Chloride 10 MEQ Tab.ER PO SCH (22:29)
[2018-12-13] MEDS: Sodium Chloride 0.9% 1,000 ML IV SCH (22:29)
[2018-12-14] MEDS: Potassium Chloride 10 MEQ Tab.ER PO SCH (00:30)
[2018-12-14] MEDS: Piperacillin/Tazobactam 4.5 GM in Sodium Chloride 0.9% 100 ML IV SCH ×3 (04:29→20:23)
[2018-12-14] MEDS: Sodium Chloride 0.9% 1,000 ML IV SCH ×3 (06:21→21:36)
--- NOTE | 2018-12-14 07:21 | PCM.HP ---
H&P History of Present Illness - General Date of Service: 12/14/18 Admit Problem/Dx: Admission Diagnosis/Problem Admission Diagnosis/Problem Urosepsis Source of Information: Patient, Old Records, Provider, RN, RN Notes Reviewed History Limitations: Reports: No Limitations - History of Present Illness Initial Comments - Free Text/Narative: Benji Luu is a 68 yo male who presented to the ED on 12/12/18 with urinary frequency and dysuria. He was diagnosed with urinary tract infection started on Macrobid 100 mg twice a day. He noted his symptoms worsened and he began developing rigors and chills. He tended eat breakfast but could not keep it down. He continues to have dry heaves but no diarrhea. His finally decided to bring him in the afternoon of 12/13/18. He has no history of BPH or previous urinary tract infections. He does have blood in his urine but denies any cough or sputum production. In the ED temperature 38.8 Celsius. Pulse 96. Respirations 22. Blood pressure 147/82. Pulse ox 90%. EKG is obtained showing a sinus rhythm at 90 bpm with a first-degree AV block. There is early R wave transition noted suggesting a possible septal hypertrophy pattern. Labs are obtained: WBC is 17.46. Hemoglobin 15.1. Hematocrit 43.9. He is normocytic. Platelets are good 198,000. Refills are elevated at 85%. There is 1% band neutrophils noted. Sodium was 135. Potassium 3.8. Chloride 101. Anoxic 24. Anion gap 13.8. BUN is 15. Creatinine is elevated at 1.5. EGFR is BUN is 15. Glucose is 179. Calcium 9.0. Magnesium is low at 1.7. Bilirubin high at 1.8. AST 29, ALT 27, alkaline phosphatase 92. CRP is high at 20.8. ProBNP is 353. Protein 7.5. Albumin 3.6. Lactic acid is 1.4. He is given Tylenol and Reglan. He is also started on 750 mg Levaquin. Blood cultures are obtained and are pending. UA cloudy with 3+ protein, trace glucose , trace ketones, 3 vessel cold blood, 4.0 urobilinogen, and 1+ leukoesterase noted. Culture pending He carries a history of impaired vision, sleep apnea with CPAP use, GERD, pyelonephritis, recurrent UTIs, arthritis, PTSD, obesity, seborrheic dermatitis. He is a full code. [facility] Abdomen Pain Score (Numeric/FACES): 3 - Related Data Allergies/Adverse Reactions: Allergies Allergy/AdvReac Type Severity Reaction Status Date / Time iodine Allergy Other Verified 12/13/18 00:10 sildenafil Allergy Other Verified 12/13/18 00:10 seafood Allergy Hives Uncoded 12/13/18 00:10 Home Medications: Home Meds Cholecalciferol (Vitamin D3) [Vitamin D3] 500 mg PO DAILY 06/19/15 [History] Omeprazole Magnesium [Prilosec] 10 mg PO BID 06/19/15 [History] FA/Lycopene/Lut/MV,Ca,Iron,Min [Centrum] 1 tab PO DAILY 10/31/18 [History] Nitrofurantoin Monohyd/M-Cryst [Macrobid 100 mg Capsule] 100 mg PO Q12H #14 capsule 12/12/18 [Rx] Past Medical History HEENT History: Reports: Impaired Vision Other HEENT History: wears eyeglasses Respiratory History: Reports: Sleep Apnea Other Respiratory History: uses CPAP machine Gastrointestinal History: Reports: GERD Genitourinary History: Reports: Pyelonephritis, UTI, Recurrent Musculoskeletal History: Reports: Arthritis Psychiatric History: Reports: PTSD, Other (See Below) Endocrine/Metabolic History: Reports: Obesity/BMI 30+ Dermatologic History: Reports: Seborrheic Dermatitis - Past Surgical History HEENT Surgical History: Reports: Oral Surgery GI Surgical History: Reports: Hernia, Inguinal Musculoskeletal Surgical History: Reports: Arthroscopic Knee Social & Family History - Family History Family Medical History: Noncontributory - Tobacco Use Smoking Status *Q: Never Smoker - Caffeine Use Caffeine Use: Reports: None - Recreational Drug Use Recreational Drug Use: No - Living Situation & Occupation Living situation: Reports: , with Spouse 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 Denies: Fever, Chills HEENT: Reports: No Symptoms. Denies: Headaches, Sore Throat Pulmonary: Reports: No Symptoms. Denies: Shortness of Breath, Wheezing, Cough, Sputum Cardiovascular: Reports: No Symptoms. Denies: Palpitations, Dyspnea on Exertion , Edema Gastrointestinal: Reports: No Symptoms. Denies: Abdominal Pain, Constipation, Diarrhea, Nausea, Vomiting Genitourinary: Reports: Frequency (improving ), Pain (improving ) Musculoskeletal: Reports: No Symptoms Skin: Reports: No Symptoms. Denies: Cyanosis Psychiatric: Reports: No Symptoms. Denies: Confusion Neurological: Reports: No Symptoms. Denies: Difficulty Walking, Gait Disturbance Hematologic/Lymphatic: Reports: No Symptoms Immunologic: Reports: No Symptoms Exam - Exam Exam: See Below - Vital Signs Vital Signs: Last Vital Signs Temp 100.2 F 12/14/18 04:27 Pulse 89 12/14/18 04:27 Resp 14 12/14/18 04:27 BP 140/71 12/14/18 04:27 Pulse Ox 94 L 12/14/18 04:27 Weight: 248 lb 11.2 oz - Exam Quality Assessment: DVT Prophylaxis. No: Urinary Catheter General: Alert, Oriented, Cooperative. No: Mild Distress HEENT: Conjunctiva Clear, EACs Clear, EOMI, Hearing Intact, Mucosa Moist & [place] , Nares Patent, Posterior Pharynx Clear, PERRLA Neck: Supple, Trachea Midline Lungs: Clear to Auscultation, Normal Respiratory Effort Cardiovascular: Regular Rate, Regular Rhythm GI/Abdominal Exam: Normal Bowel Sounds, Soft, Non-Tender, No Distention, No Abnormal Bruit (Male) Exam: Deferred Rectal (Males) Exam: Deferred Back Exam: Normal Inspection, Full Range of Motion Extremities: Normal Inspection, Normal Range of Motion, Non-Tender, No Pedal Edema, Normal Capillary Refill Peripheral Pulses: 3+: Radial (L), Radial (R), Dorsalis Pedis (L), Dorsalis Pedis (R) Skin: Warm, Dry, Intact Neurological: Cranial Nerves Intact (grossly ) Neuro Extensive - Mental Status: Alert, Oriented x3, Normal Mood/Affect, Normal Cognition - Patient Data Lab Results Last 24 hrs: Laboratory Results - last 24 hr 12/13/18 12/13/18 12/13/18 Range/Units 17:31 17:31 17:31 WBC 17.46 H (4.23-9.07) K/mm3 RBC 4.94 (4.63-6.08) M/mm3 Hgb 15.1 (13.7-17.5) gm/L Hct 43.9 (40.1-51.0) % MCV 88.9 (79.0-92.2) fl MCH 30.6 (25.7-32.2) pg MCHC 34.4 (32.2-35.5) g/dl RDW Std Deviation 42.7 (35.1-43.9) fL Plt Count 198 (163-337) K/mm3 MPV 10.3 (9.4-12.3) fl Neut % (Auto) (34.0-67.9) % Lymph % (Auto) (21.8-53.1) % Cache % (Auto) (5.3-12.2) % Eos % (Auto) (0.8-7.0) Baso % (Auto) (0.1-1.2) % Neut # (Auto) (1.78-5.38) K/mm3 Lymph # (Auto) (1.32-3.57) K/mm3 [place] # (Auto) (0.30-0.82) K/mm3 Eos # (Auto) (0.04-0.54) K/mm3 Baso # (Auto) (0.01-0.08) K/mm3 Neutrophils % (Manual) 85 H (40-60) % Band Neutrophils % 1 (0-10) % Lymphocytes % (Manual) 4 L (20-40) % Atypical Lymphs % 0 % Monocytes % (Manual) 10 (2-10) % Eosinophils % (Manual) 0 L (0.8-7.0) % Basophils % (Manual) 0 L (0.2-1.2) Platelet Estimate Adequate RBC Morph Comment Normal Sodium 135 L (136-145) mEq/L Potassium 3.8 (3.5-5.1) mEq/L Chloride 101 (98-107) mEq/L Carbon Dioxide 24 (21-32) mEq/L Anion Gap 13.8 (5-15) BUN 15 (7-18) mg/dL Creatinine 1.5 H (0.7-1.3) mg/dL Est Cr Clr Drug Dosing 57.75 mL/min Estimated GFR (MDRD) 46 (>60) mL/min BUN/Creatinine Ratio 10.0 L (14-18) Glucose 179 H (80-115) mg/dL Hemoglobin A1c (4.50-6.20) % Lactic Acid (0.4-2.0) mmol/L Calcium 9.0 (8.5-10.1) mg/dL Magnesium 1.7 L (1.8-2.4) mg/dl Total Bilirubin 1.8 H (0.2-1.0) mg/dL AST 29 (15-37) U/L ALT 27 (16-63) U/L Alkaline Phosphatase 92 (46-116) U/L C-Reactive Protein 20.8 H* (<1.0) mg/dL NT-Pro-B Natriuret Pep 353 H (0-125) pg/mL Total Protein 7.5 (6.4-8.2) g/dl Albumin 3.6 (3.4-5.0) g/dl Globulin 3.9 gm/dL Albumin/Globulin Ratio 0.9 L (1-2) Vitamin D 25-Hydroxy (30.0-100.0) ng/ml Free T4 (0.76-1.46) ng/dL TSH 3rd Generation (0.358-3.74) uIU/mL Urine Color (Yellow) Urine Appearance (Clear) Urine pH (5.0-8.0) Ur Specific [place] (1.005-1.030) Urine Protein (Negative) Urine Glucose (UA) (Negative) Urine Ketones (Negative) Urine Occult Blood (Negative) Urine Nitrite (Negative) Urine Bilirubin (Negative) Urine Urobilinogen (0.2-1.0) Ur Leukocyte Esterase (Negative) 12/13/18 12/13/18 12/13/18 Range/Units 17:31 17:31 17:41 WBC (4.23-9.07) K/mm3 RBC (4.63-6.08) M/mm3 Hgb (13.7-17.5) gm/L Hct (40.1-51.0) % MCV (79.0-92.2) fl MCH (25.7-32.2) pg MCHC (32.2-35.5) g/dl RDW Std Deviation (35.1-43.9) fL Plt Count (163-337) K/mm3 MPV (9.4-12.3) fl Neut % (Auto) (34.0-67.9) % Lymph % (Auto) (21.8-53.1) % Cache % (Auto) (5.3-12.2) % Eos % (Auto) (0.8-7.0) Baso % (Auto) (0.1-1.2) % Neut # (Auto) (1.78-5.38) K/mm3 Lymph # (Auto) (1.32-3.57) K/mm3 Cache # (Auto) (0.30-0.82) K/mm3 Eos # (Auto) (0.04-0.54) K/mm3 Baso # (Auto) (0.01-0.08) K/mm3 Neutrophils % (Manual) (40-60) % Band Neutrophils % (0-10) % Lymphocytes % (Manual) (20-40) % Atypical Lymphs % % Monocytes % (Manual) (2-10) % Eosinophils % (Manual) (0.8-7.0) % Basophils % (Manual) (0.2-1.2) Platelet Estimate RBC Morph Comment Sodium (136-145) mEq/L Potassium (3.5-5.1) mEq/L Chloride (98-107) mEq/L Carbon Dioxide (21-32) mEq/L Anion Gap (5-15) BUN (7-18) mg/dL Creatinine (0.7-1.3) mg/dL Est Cr Clr Drug Dosing mL/min Estimated GFR (MDRD) (>60) mL/min BUN/Creatinine Ratio (14-18) Glucose (80-115) mg/dL Hemoglobin A1c 6.10 (4.50-6.20) % Lactic Acid 1.4 (0.4-2.0) mmol/L Calcium (8.5-10.1) mg/dL Magnesium (1.8-2.4) mg/dl Total Bilirubin (0.2-1.0) mg/dL AST (15-37) U/L ALT (16-63) U/L Alkaline Phosphatase (46-116) U/L C-Reactive Protein (<1.0) mg/dL NT-Pro-B Natriuret Pep (0-125) pg/mL Total Protein (6.4-8.2) g/dl Albumin (3.4-5.0) g/dl Globulin gm/dL Albumin/Globulin Ratio (1-2) Vitamin D 25-Hydroxy 66.8 (30.0-100.0) ng/ml Free T4 0.98 (0.76-1.46) ng/dL TSH 3rd Generation 0.637 (0.358-3.74) uIU/mL Urine Color (Yellow) Urine Appearance (Clear) Urine pH (5.0-8.0) Ur Specific [place] (1.005-1.030) Urine Protein (Negative) Urine Glucose (UA) (Negative) Urine Ketones (Negative) Urine Occult Blood (Negative) Urine Nitrite (Negative) Urine Bilirubin (Negative) Urine Urobilinogen (0.2-1.0) Ur Leukocyte Esterase (Negative) 12/13/18 12/14/18 Range/Units 18:41 06:09 WBC 15.62 H (4.23-9.07) K/mm3 RBC 4.73 (4.63-6.08) M/mm3 Hgb 14.4 (13.7-17.5) gm/L Hct 42.7 (40.1-51.0) % MCV 90.3 (79.0-92.2) fl MCH 30.4 (25.7-32.2) pg MCHC 33.7 (32.2-35.5) g/dl RDW Std Deviation 43.6 (35.1-43.9) fL Plt Count 172 (163-337) K/mm3 MPV 10.4 (9.4-12.3) fl Neut % (Auto) 86.8 H (34.0-67.9) % Lymph % (Auto) 4.2 L (21.8-53.1) % Cache % (Auto) 8.6 (5.3-12.2) % Eos % (Auto) 0 L (0.8-7.0) Baso % (Auto) 0.1 (0.1-1.2) % Neut # (Auto) 13.55 H (1.78-5.38) K/mm3 Lymph # (Auto) 0.66 L (1.32-3.57) K/mm3 [place] # (Auto) 1.35 H (0.30-0.82) K/mm3 Eos # (Auto) 0.00 L (0.04-0.54) K/mm3 Baso # (Auto) 0.01 (0.01-0.08) K/mm3 Neutrophils % (Manual) (40-60) % Band Neutrophils % (0-10) % Lymphocytes % (Manual) (20-40) % Atypical Lymphs % % Monocytes % (Manual) (2-10) % Eosinophils % (Manual) (0.8-7.0) % Basophils % (Manual) (0.2-1.2) Platelet Estimate RBC Morph Comment Sodium (136-145) mEq/L Potassium (3.5-5.1) mEq/L Chloride (98-107) mEq/L Carbon Dioxide (21-32) mEq/L Anion Gap (5-15) BUN (7-18) mg/dL Creatinine (0.7-1.3) mg/dL Est Cr Clr Drug Dosing mL/min Estimated GFR (MDRD) (>60) mL/min BUN/Creatinine Ratio (14-18) Glucose (80-115) mg/dL Hemoglobin A1c (4.50-6.20) % Lactic Acid (0.4-2.0) mmol/L Calcium (8.5-10.1) mg/dL Magnesium (1.8-2.4) mg/dl Total Bilirubin (0.2-1.0) mg/dL AST (15-37) U/L ALT (16-63) U/L Alkaline Phosphatase (46-116) U/L C-Reactive Protein (<1.0) mg/dL NT-Pro-B Natriuret Pep (0-125) pg/mL Total Protein (6.4-8.2) g/dl Albumin (3.4-5.0) g/dl Globulin gm/dL Albumin/Globulin Ratio (1-2) Vitamin D 25-Hydroxy (30.0-100.0) ng/ml Free T4 (0.76-1.46) ng/dL TSH 3rd Generation (0.358-3.74) uIU/mL Urine Color Yellow (Yellow) Urine Appearance Cloudy H (Clear) Urine pH 7.0 (5.0-8.0) Ur Specific [place] 1.025 (1.005-1.030) Urine Protein 3+ H (Negative) Urine Glucose (UA) Trace H (Negative) Urine Ketones Trace H (Negative) Urine Occult Blood 3+ H (Negative) Urine Nitrite Negative (Negative) Urine Bilirubin Negative (Negative) Urine Urobilinogen 4.0 H (0.2-1.0) Ur Leukocyte Esterase 1+ H (Negative) Result Diagrams: 12/14/18 06:09 12/14/18 06:09 - Problem List (1) Acute febrile illness SNOMED Code(s): 526230717 ICD Code: R50.9 - FEVER, UNSPECIFIED Status: Acute Priority: High Current Visit: Yes (2) Nausea and vomiting in adult patient SNOMED Code(s): 76993913 ICD Code: R11.2 - NAUSEA WITH VOMITING, UNSPECIFIED Status: Acute Priority: High Current Visit: Yes (3) Sepsis SNOMED Code(s): 60364715 ICD Code: A41.9 - SEPSIS, UNSPECIFIED ORGANISM Status: Acute Priority: High Current Visit: Yes Qualifiers: Sepsis type: Escherichia coli Qualified Code(s): A41.51 - Sepsis due to Escherichia coli [E. coli] (4) UTI (urinary tract infection) SNOMED Code(s): 21477300 ICD Code: N39.0 - URINARY TRACT INFECTION, SITE NOT SPECIFIED Status: Acute Priority: High Current Visit: Yes Qualifiers: Urinary tract infection type: acute pyelonephritis Qualified Code(s): N10 - Acute pyelonephritis (5) Abnormal abdominal CT scan SNOMED Code(s): 75410934892968261 ICD Code: R93.5 - ABN FINDINGS ON DX IMAGING OF ABD REGIONS, INC RETROPERITON Status: Chronic Priority: Medium Current Visit: Yes Problem List Initiated/Reviewed/Updated: Yes Orders Last 24hrs: Active Orders 24 hr Category Date Time Status Admission Status [Patient Status] [ADT] Routine ADT 12/13/18 19:14 Active Antiembolic Devices [RC] DAILY Care 12/13/18 20:54 Active Height and Weight [RC] 04 Care 12/13/18 20:52 Active Intake and Output [RC] 04,16 Care 12/13/18 20:53 Active Oxygen Therapy [RC] PRN Care 12/13/18 20:52 Active RT Aerosol Therapy [RC] ASDIRECTED Care 12/13/18 20:55 Active Up With Assistance [RC] ASDIRECTED Care 12/13/18 20:52 Active Up ad Sarita [RC] ASDIRECTED Care 12/13/18 20:52 Active VTE/DVT Education [RC] DAILY Care 12/13/18 20:52 Active Vital Signs [RC] Q4HR Care 12/13/18 20:52 Active Consult to Case Management/Sewing Machine Operator Floorperson [CONS] Cons 12/13/18 20:52 Active Routine Consult to Farm Helper [CONS] Routine Cons 12/13/18 20:52 Active Consult to Spiritual Care [CONS] Routine Cons 12/13/18 20:52 Active OT Evaluation and Treatment [CONS] Routine Cons 12/13/18 20:52 Active PT Evaluation and Treatment [CONS] Routine Cons 12/13/18 20:52 Active Regular Diet [DIET] Diet 12/13/18 Dinner Active Abdomen Pelvis wo Cont [CT] Routine Exams 12/14/18 07:00 Ordered Chest 1V Frontal [CR] Urgent Exams 12/13/18 20:59 Taken BASIC METABOLIC PANEL,BMP [CHEM] AM Lab 12/14/18 06:09 Received BASIC METABOLIC PANEL,BMP [CHEM] AM Lab 12/15/18 05:11 Ordered BASIC METABOLIC PANEL,BMP [CHEM] AM Lab 12/16/18 05:11 Ordered BASIC METABOLIC PANEL,BMP [CHEM] AM Lab 12/17/18 05:11 Ordered BASIC METABOLIC PANEL,BMP [CHEM] AM Lab 12/18/18 05:11 Ordered C-REACTIVE PROTEIN [CHEM] AM Lab 12/14/18 06:09 Received C-REACTIVE PROTEIN [CHEM] AM Lab 12/15/18 05:11 Ordered C-REACTIVE PROTEIN [CHEM] AM Lab 12/16/18 05:11 Ordered C-REACTIVE PROTEIN [CHEM] AM Lab 12/17/18 05:11 Ordered C-REACTIVE PROTEIN [CHEM] AM Lab 12/18/18 05:11 Ordered CBC WITH AUTO DIFF [HEME] AM Lab 12/14/18 06:09 Results CBC WITH AUTO DIFF [HEME] AM Lab 12/15/18 05:11 Ordered CBC WITH AUTO DIFF [HEME] AM Lab 12/16/18 05:11 Ordered CBC WITH AUTO DIFF [HEME] AM Lab 12/17/18 05:11 Ordered CBC WITH AUTO DIFF [HEME] AM Lab 12/18/18 05:11 Ordered CULTURE BLOOD [BC] Stat Lab 12/13/18 17:31 Received CULTURE BLOOD [BC] Stat Lab 12/13/18 17:41 Received CULTURE URINE [RM] Routine Lab 12/14/18 07:16 Ordered MAGNESIUM [CHEM] AM Lab 12/14/18 06:09 Received MAGNESIUM [CHEM] AM Lab 12/15/18 05:11 Ordered MAGNESIUM [CHEM] AM Lab 12/16/18 05:11 Ordered MAGNESIUM [CHEM] AM Lab 12/17/18 05:11 Ordered MAGNESIUM [CHEM] AM Lab 12/18/18 05:11 Ordered PROCALCITONIN [REF] Stat Lab 12/13/18 17:31 Received RESPIRATORY PANEL Stat Lab 12/14/18 00:35 Received Acetaminophen/Butalbital/Caff [Fioricet 325-50-40 MG] Med 12/13/18 21:02 Active 1 tab PO Q6H PRN Acetaminophen/HYDROcodone [[place] 325-5 MG] Med 12/13/18 20:52 Active 1 tab PO Q4H PRN Albuterol/Ipratropium [DuoNeb 3.0-0.5 MG/3 ML] Med 12/13/18 20:52 Active 3 ml NEB Q4H PRN Bisacodyl [Dulcolax] Med 12/14/18 09:00 Active 10 mg RECTAL BID PRN Bisacodyl [Dulcolax] Med 12/13/18 20:52 Active 5 mg PO DAILY PRN Cholecalciferol (Vitamin D3) [Vitamin D3] Med 12/14/18 09:00 Active 500 units PO DAILY Docusate Sodium [Colace] Med 12/13/18 20:52 Active 100 mg PO BID PRN Docusate Sodium/Sennosides [Senna Plus] Med 12/13/18 20:52 Active 1 tab PO BID PRN HYDROmorphone [Dilaudid] Med 12/13/18 20:52 Active 0.25 mg IVPUSH Q2H PRN LORazepam [Ativan] Med 12/13/18 20:52 Active 0.5 mg IV Q6H PRN LORazepam [Ativan] Med 12/13/18 20:52 Active 2 mg IVPUSH Q4H PRN Levofloxacin/Dextrose 5%-Water [Levaquin in D5W 750 MG/ Med 12/14/18 17:00 Active 150 ML] 750 mg Premix Bag 1 bag IV Q24H Metoprolol Tartrate [Lopressor] Med 12/13/18 20:52 Active 5 mg IVPUSH Q4H PRN Ondansetron [Zofran] Med 12/13/18 20:52 Active 4 mg IV Q6H PRN Pharmacy to Dose - Magnesium R [Pharmacy to Dose - Med 12/13/18 21:00 Active Magnesium Replacement] 0 dose .XX ASDIRECTED PRN Pharmacy to Dose - Potassium R [Pharmacy to Dose - Med 12/13/18 21:00 Active Potassium Replacement] 0 dose .XX ASDIRECTED PRN Piperacillin/Tazobactam [Piperacil-Tazobact] 4.5 gm Med 12/14/18 05:00 Active Sodium Chloride 0.9% [Normal Saline] 100 ml IV Q8H Polyethylene Glycol 3350 [MiraLAX] Med 12/13/18 20:52 Active 17 gm PO DAILY PRN Promethazine [Phenergan] 6.25 mg Med 12/13/18 20:52 Active Sodium Chloride 0.9% [Normal Saline] 50 ml IV Q6H Saccharomyces Boulardii [Florastor] Med 12/13/18 21:00 Active 250 mg PO BID Sodium Chloride 0.9% [Normal Saline] 1,000 ml Med 12/13/18 21:00 Active IV ASDIRECTED Tamsulosin [Flomax] Med 12/14/18 09:00 Active 0.4 mg PO BIDPC Temazepam [Restoril] Med 12/13/18 20:52 Active 7.5 mg PO BEDTIME PRN hydrALAZINE [Apresoline] Med 12/13/18 20:52 Active 20 mg IVPUSH Q4H PRN Blood Culture x2 Reflex Set [OM.PC] Stat Oth 12/13/18 17:10 Ordered Sequential Compression Device [OM.PC] Per Unit Routine Oth 12/13/18 20:53 Ordered Resuscitation Status Routine Resus Stat 12/13/18 20:52 Ordered Medication Orders Acetaminophen/Butalbital/Caffeine (Fioricet 325-50-40 Mg) 1 tab PO Q6H PRN PRN Reason: Headache/Pain Hydrocodone Bitart/Acetaminophen ([place] 325-5 Mg) 1 tab PO Q4H PRN PRN Reason: Pain (moderate 4-6) Last Admin: 12/13/18 22:36 Dose: 1 tab Albuterol/Ipratropium (Duoneb 3.0-0.5 Mg/3 Ml) 3 ml NEB Q4H PRN PRN Reason: Shortness Of Breath/wheezing Bisacodyl (Dulcolax) 5 mg PO DAILY PRN PRN Reason: Constipation Bisacodyl (Dulcolax) 10 mg RECTAL BID PRN PRN Reason: Constipation Cholecalciferol (Vitamin D3) 500 units PO DAILY [facility] Docusate Sodium (Colace) 100 mg PO BID PRN PRN Reason: Constipation Hydralazine HCl (Apresoline) 20 mg IVPUSH Q4H PRN PRN Reason: Hypertension Hydromorphone HCl (Dilaudid) 0.25 mg IVPUSH Q2H PRN PRN Reason: Pain (severe 7-10) Levofloxacin/Dextrose 750 mg/ (Premix) 150 mls @ 100 mls/hr IV Q24H [facility] Promethazine HCl 6.25 mg/ (Sodium Chloride) 50.25 mls @ 100 mls/hr IV Q6H PRN PRN Reason: Nausea/Vomiting Sodium Chloride (Normal Saline) 1,000 mls @ 125 mls/hr IV ASDIRECTED [facility] Stop: 12/15/18 04:59 Last Admin: 12/14/18 06:21 Dose: 125 mls/hr Infusion: 12/14/18 06:21 Dose: 125 mls/hr Admin: 12/13/18 22:29 Dose: 125 mls/hr Piperacillin Sod/Tazobactam (Sod 4.5 gm/ Sodium Chloride) 100 mls @ 25 mls/hr IV Q8H [facility] Last Admin: 12/14/18 04:29 Dose: 25 mls/hr Lorazepam (Ativan) 2 mg IVPUSH Q4H PRN PRN Reason: Seizures Lorazepam (Ativan) 0.5 mg IV Q6H PRN PRN Reason: Anxiety Magnesium Sulfate (Pharmacy To Dose - Magnesium Replacement) 0 dose .XX ASDIRECTED PRN PRN Reason: RX TO WATCH MAG Metoprolol Tartrate (Lopressor) 5 mg IVPUSH Q4H PRN PRN Reason: Tachycardia Ondansetron HCl (Zofran) 4 mg IV Q6H PRN PRN Reason: Nausea/Vomiting Polyethylene Glycol (Miralax) 17 gm PO DAILY PRN PRN Reason: Constipation Potassium Chloride (Pharmacy To Dose - Potassium Replacement) 0 dose .XX ASDIRECTED PRN PRN Reason: RX TO WATCH K Saccharomyces Boulardii (Florastor) 250 mg PO BID [facility] Last Admin: 12/13/18 22:28 Dose: 250 mg Senna/Docusate Sodium (Senna Plus) 1 tab PO BID PRN PRN Reason: Constipation [facility] Temazepam (Restoril) 7.5 mg PO BEDTIME PRN PRN Reason: Sleep Assessment/Plan Comment:: I/P: Acute: Urosepsis -Presented to ED on 12/12/18 and diagnosed with UTI. Started on Macrobid 100mg BID -Failed outpatient treatment -Returned to ED on 12/13/18 with worsening rigors, chills, nausea, and vomiting -No hx/o BPH but significant hx of frequent UTIs and pyelonephritis -Fever of 102 in ED -UA: cloudy with 3+ protein, trace glucose, trace ketones, 3 vessel cold blood, 4.0 urobilinogen, and 1+ leukoesterase noted. -Culture pending -WBC 17.46-->15.62 -CRP 20.8-->28.6 -Lactic acid 1.4 -IV fluids as ordered -Levaquin started in ED - continue -Start zosyn -CT abdomen/pelvis obtained 12/14/18 (compared to CT abdomen and pelvis from 08/16/17) * 1. Areas of ectasia within the aorta as noted above. Findings are similar to most recent CT study. * 2. Focal area of narrowing within the sigmoid colon and difficult exclude apple core lesion from colonic carcinoma. An DOS he was recommended on prior CT exam, has been performed? * 3. Other incidental findings as noted above which remained stable. -Tylenol as needed for fever -Blood cultures pending -Procalcitonin pending -Probiotic Malaise/Weakness -Likely 2/2 above -VRP pending -CXR shows nothing acute -Denies cough CESARIO -Baseline appears to be creatinine of 1.3 and GFR of 55 -Creatinine 1.5-->1.6 -BUN 16-->16 -GFR 46-->43 -IV fluids as ordered Bladder outlet obstruction -Patient reports increased frequency for sometime -EVARISTO by Dr. Neville noted enlarged prostate -CT scan showed diffuse bladder wall thickening and enlarged prostate suggesting bladder outlet obstruction -Started on flomax here with good results -Hx/o frequent UTIs -Will need urology follow-up after discharge Hypomagnesemia -Magnesium 1.7-->1.6 -2/2 inadequate intake -Pharmacy to monitor and supplement Abnormal CT scan finding -CT scan shows apple core lesion as above -Reportedly underwent colonoscopy last year with no concerns -Obtain old records -PCP to follow-up after discharge Chronic: Impaired vision BERONICA - uses CPAP GERD Hx/o Pyelonephritis Recurrent UTIs Arthritis PTSD Obesity Seborrheic Dermatitis Plan: Admit to medical floor Other orders as indicated above Routine AM labs PT/OT CM/SW for discharge planning [facility] Spiritual care consult DVT prophylaxis: Heparin Code status: Full code; PCP: ANA
--- NOTE | 2018-12-14 08:12 | CR ---
Chest: Frontal view of the chest was obtained. Comparison: No prior chest x-ray. Heart size and mediastinum are within normal limits. Lungs are clear. Bony structures are grossly intact. Impression: 1. Nothing acute is seen on frontal chest x-ray. Diagnostic code #1 I agree with preliminary report from [facility], finalized on 12/14/18, 2:44 AM Central Time
[2018-12-14] MEDS ORDERED: Sodium Chloride 0.9% 500 ML IV ONE (08:44)
[2018-12-14] MEDS: Saccharomyces Boulardii (Probiotic) 250 MG Cap PO SCH ×2 (08:48→20:23)
[2018-12-14] MEDS: Tamsulosin 0.4 MG Cap.ER PO SCH ×2 (08:49→17:03)
[2018-12-14] MEDS: Cholecalciferol (Vitamin D3) 1,000 Unit Tab PO SCH (08:49)
[2018-12-14] MEDS ORDERED: Bisacodyl 10 MG Supp RECTAL PRN (09:00)
--- NOTE | 2018-12-14 09:07 | CT ---
CT abdomen and pelvis Technique: Multiple axial sections were obtained from above the dome of the diaphragm inferiorly through the pubic symphysis. Intravenous and oral contrast not utilized. Lack of contrast diminishes details of this exam. Comparison: Previous CT abdomen and pelvis exam of 08/16/17 is available. Findings: Moderately large hiatal hernia is seen. Mild atelectasis is noted posteriorly within both lung bases. Liver shows fatty infiltration. Two small low density findings are seen within the anterior right lobe measuring less than 1 cm which is felt compatible with 2 small cysts. These are felt to be stable from prior exam. Spleen appears within normal limits. Gallbladder contains no calcified gallstones. Adrenal glands show no nodule. Pancreas is within normal limits. 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 This is felt to be stable from previous exam. Distal aorta measures 2.4 cm which is stable. Kidneys show no abnormal calcifications. Ureters show no dilatation. No ureteral calculi are seen. Diffuse bladder wall thickening is seen most likely from hypertrophy due to an element of bladder outlet obstruction. Prostate gland is enlarged. Focal area of narrowing again noted within the sigmoid colon and difficult to exclude apple core lesion from colon cancer. This less likely may represent focal area of scarring or contraction. No retroperitoneal adenopathy or mesenteric abnormalities are seen. Appendix is seen which is normal in size. Surgical material noted anteriorly within the lower left abdomen extending into the inguinal region. No free fluid or inflammatory change is seen. Bone window settings were reviewed which show scattered degenerative change within the spine. Small umbilical hernia is noted. Impression: 1. Areas of ectasia within the aorta as noted above. Findings are similar to most recent CT study. 2. Focal area of narrowing within the sigmoid colon and difficult to exclude apple core lesion from colonic carcinoma. Endoscopy was recommended on prior CT exam, has this been performed? 3. Other incidental findings as noted above which remain stable. Diagnostic code #9 Tool Grinding Technician called report to Maikel Uribe PA-C for Dr. Dinora Neville at 8:52 on 12/14/18
[2018-12-14] MEDS: Heparin Sodium 5,000 Units/ML Vial SUBCUT SCH ×2 (13:03→23:55)
[2018-12-14] MEDS ORDERED: Calcium Carbonate 500 MG Tab.Chew PO ONE (16:10)
[2018-12-14] MEDS: Famotidine 20 MG Tab PO SCH (16:21)
[2018-12-14] MEDS: Levofloxacin/Dextrose 5%-Water 750 MG in Premix Bag 1 BAG IV SCH (17:04)
[2018-12-14] MEDS ORDERED: Doxazosin 2 MG Tab PO SCH (21:00)
[2018-12-15] MEDS: Piperacillin/Tazobactam 4.5 GM in Sodium Chloride 0.9% 100 ML IV SCH ×2 (04:57→12:33)
[2018-12-15] MEDS: Sodium Chloride 0.9% 1,000 ML IV SCH (07:22)
--- NOTE | 2018-12-15 07:36 | PCM.PN ---
- General Info Date of Service: 12/15/18 Admission Dx/Problem (Free Text): Admission Diagnosis/Problem Admission Diagnosis/Problem Urosepsis Subjective Update: In to see Benji. He is doing very well. Reports very very mild lower quadrant abdominal pain which he reportedly forgot to tell me about yesterday. He states this is improving. His urinary frequency has improved greatly. Plan for discharge tomorrow pending continued improvement.. He will need PCP for follow-up regarding CT scan results as well as urology follow-up. Functional Status: Reports: Pain Controlled, Tolerating Diet, Ambulating, Urinating. Denies: New Symptoms - Review of Systems General: Reports: No Symptoms. Denies: Fever, Weakness, Fatigue, Malaise, Chills HEENT: Reports: No Symptoms. Denies: Headaches, Sore Throat Pulmonary: Reports: No Symptoms. Denies: Shortness of Breath, Pleuritic Chest Pain, Cough, Sputum, Wheezing Cardiovascular: Reports: No Symptoms. Denies: Chest Pain, Palpitations, Dyspnea on Exertion, Edema Gastrointestinal: Reports: Abdominal Pain (very mild lower quadrant which has improved daily ). Denies: Constipation, Diarrhea, Nausea, Vomiting Genitourinary: Reports: Frequency (improving ). Denies: Burning, Pain, Urgency Musculoskeletal: Reports: No Symptoms Skin: Reports: No Symptoms. Denies: Cyanosis Neurological: Reports: No Symptoms. Denies: Confusion, Syncope, Trouble Speaking, Difficulty Walking, Change in Speech, Gait Disturbance Psychiatric: Reports: No Symptoms - Patient Data Vitals - Most Recent: Last Vital Signs Temp 98.4 F 12/15/18 04:53 Pulse 69 12/15/18 04:53 Resp 14 12/15/18 04:53 BP 137/83 12/15/18 04:53 Pulse Ox 97 12/15/18 04:53 Weight - Most Recent: 253 lb 3.2 oz I&O - Last 24 Hours: Intake & Output 12/14/18 12/15/18 12/15/18 22:59 06:59 14:59 Intake Total 3165 2027 Output Total 500 1350 Balance 2665 677 Lab Results Last 24 Hours: Laboratory Results - last 24 hr 12/13/18 12/14/18 12/14/18 Range/Units 17:31 00:35 06:09 WBC (4.23-9.07) K/mm3 RBC (4.63-6.08) M/mm3 Hgb (13.7-17.5) gm/L Hct (40.1-51.0) % MCV (79.0-92.2) fl MCH (25.7-32.2) pg MCHC (32.2-35.5) g/dl RDW Std Deviation (35.1-43.9) fL Plt Count (163-337) K/mm3 MPV (9.4-12.3) fl Neut % (Auto) (34.0-67.9) % Lymph % (Auto) (21.8-53.1) % [place] % (Auto) (5.3-12.2) % Eos % (Auto) (0.8-7.0) Baso % (Auto) (0.1-1.2) % Neut # (Auto) (1.78-5.38) K/mm3 Lymph # (Auto) (1.32-3.57) K/mm3 [place] # (Auto) (0.30-0.82) K/mm3 Eos # (Auto) (0.04-0.54) K/mm3 Baso # (Auto) (0.01-0.08) K/mm3 Manual Slide Review Normal smear Sodium (136-145) mEq/L Potassium (3.5-5.1) mEq/L Chloride (98-107) mEq/L Carbon Dioxide (21-32) mEq/L Anion Gap (5-15) BUN (7-18) mg/dL Creatinine (0.7-1.3) mg/dL Est Cr Clr Drug Dosing mL/min Estimated GFR (MDRD) (>60) mL/min BUN/Creatinine Ratio (14-18) Glucose (80-115) mg/dL Calcium (8.5-10.1) mg/dL Magnesium (1.8-2.4) mg/dl C-Reactive Protein (<1.0) mg/dL Procalcitonin 0.99 H (<0.10) ng/mL Adenovirus (PCR) Not detected (Not Detected) B. pertussis DNA (PCR) Not detected (Not Detected) B.parapertussis DNA PCR Not detected (Not Detected) C. pneumoniae DNA (PCR) Not detected (Not Detected) Coronavirus (PCR) Not detected (Not Detected) Human Metapneumovir PCR Not detected (Not Detected) Influenza A (RT-PCR) Not detected (Not Detected) Influenza B (RT-PCR) Not detected (Not Detected) M. pneumoniae (PCR) Not detected (Not Detected) Parainfluen 1,2,3,4 PCR Not detected (Not Detected) RSV (PCR) Not detected (Not Detected) Entero/Rhino (PCR) Not detected (Not Detected) 12/14/18 12/15/18 12/15/18 Range/Units 06:09 05:40 05:40 WBC 10.52 H (4.23-9.07) K/mm3 RBC 4.16 L (4.63-6.08) M/mm3 Hgb 12.7 L (13.7-17.5) gm/L Hct 37.8 L (40.1-51.0) % MCV 90.9 (79.0-92.2) fl MCH 30.5 (25.7-32.2) pg MCHC 33.6 (32.2-35.5) g/dl RDW Std Deviation 43.9 (35.1-43.9) fL Plt Count 174 (163-337) K/mm3 MPV 10.6 (9.4-12.3) fl Neut % (Auto) 83.9 H (34.0-67.9) % Lymph % (Auto) 6.8 L (21.8-53.1) % [place] % (Auto) 9.0 (5.3-12.2) % Eos % (Auto) 0.1 L (0.8-7.0) Baso % (Auto) 0.1 (0.1-1.2) % Neut # (Auto) 8.82 H (1.78-5.38) K/mm3 Lymph # (Auto) 0.72 L (1.32-3.57) K/mm3 [place] # (Auto) 0.95 H (0.30-0.82) K/mm3 Eos # (Auto) 0.01 L (0.04-0.54) K/mm3 Baso # (Auto) 0.01 (0.01-0.08) K/mm3 Manual Slide Review Normal smear Sodium 138 137 (136-145) mEq/L Potassium 4.2 4.0 (3.5-5.1) mEq/L Chloride 104 105 (98-107) mEq/L Carbon Dioxide 21 22 (21-32) mEq/L Anion Gap 17.2 H 14.0 (5-15) BUN 16 14 (7-18) mg/dL Creatinine 1.6 H 1.4 H (0.7-1.3) mg/dL Est Cr Clr Drug Dosing 54.14 61.88 mL/min Estimated GFR (MDRD) 43 50 (>60) mL/min BUN/Creatinine Ratio 10.0 L 10.0 L (14-18) Glucose 166 H 134 H (80-115) mg/dL Calcium 8.4 L 8.2 L (8.5-10.1) mg/dL Magnesium 1.6 L 1.8 (1.8-2.4) mg/dl C-Reactive Protein 28.6 H* 23.9 H* (<1.0) mg/dL Procalcitonin (<0.10) ng/mL Adenovirus (PCR) (Not Detected) B. pertussis DNA (PCR) (Not Detected) B.parapertussis DNA PCR (Not Detected) C. pneumoniae DNA (PCR) (Not Detected) Coronavirus (PCR) (Not Detected) Human Metapneumovir PCR (Not Detected) Influenza A (RT-PCR) (Not Detected) Influenza B (RT-PCR) (Not Detected) M. pneumoniae (PCR) (Not Detected) Parainfluen 1,2,3,4 PCR (Not Detected) RSV (PCR) (Not Detected) Entero/Rhino (PCR) (Not Detected) [place] Results Last 24 Hours: Microbiology 12/13/18 17:41 Aerobic Blood Culture - Preliminary Blood - Venous NO GROWTH AFTER 1 DAY Anaerobic Blood Culture - Preliminary NO GROWTH AFTER 1 DAY 12/13/18 17:31 Aerobic Blood Culture - Preliminary Blood - Venous - Lab Draw NO GROWTH AFTER 1 DAY Anaerobic Blood Culture - Preliminary NO GROWTH AFTER 1 DAY Med Orders - Current: Current Medications Acetaminophen/Butalbital/Caffeine (Fioricet 325-50-40 Mg) 1 tab PO Q6H PRN PRN Reason: Headache/Pain Hydrocodone Bitart/Acetaminophen ([place] 325-5 Mg) 1 tab PO Q4H PRN PRN Reason: Pain (moderate 4-6) Last Admin: 12/13/18 22:36 Dose: 1 tab Albuterol/Ipratropium (Duoneb 3.0-0.5 Mg/3 Ml) 3 ml NEB Q4H PRN PRN Reason: Shortness Of Breath/wheezing Bisacodyl (Dulcolax) 5 mg PO DAILY PRN PRN Reason: Constipation Bisacodyl (Dulcolax) 10 mg RECTAL BID PRN PRN Reason: Constipation Cholecalciferol (Vitamin D3) 500 units PO DAILY [facility] Last Admin: 12/14/18 08:49 Dose: 500 units Docusate Sodium (Colace) 100 mg PO BID PRN PRN Reason: Constipation Famotidine (Pepcid) 20 mg PO DAILY [facility] Last Admin: 12/14/18 16:21 Dose: 20 mg Heparin Sodium (Porcine) (Heparin Sodium) 5,000 units SUBCUT Q12H [facility] Last Admin: 12/14/18 23:55 Dose: 5,000 units Hydralazine HCl (Apresoline) 20 mg IVPUSH Q4H PRN PRN Reason: Hypertension Hydromorphone HCl (Dilaudid) 0.25 mg IVPUSH Q2H PRN PRN Reason: Pain (severe 7-10) Levofloxacin/Dextrose 750 mg/ (Premix) 150 mls @ 100 mls/hr IV Q24H [facility] Last Admin: 12/14/18 17:04 Dose: 100 mls/hr Promethazine HCl 6.25 mg/ (Sodium Chloride) 50.25 mls @ 100 mls/hr IV Q6H PRN PRN Reason: Nausea/Vomiting Piperacillin Sod/Tazobactam (Sod 4.5 gm/ Sodium Chloride) 100 mls @ 25 mls/hr IV Q8H [facility] Last Admin: 12/15/18 04:57 Dose: 25 mls/hr Sodium Chloride (Normal Saline) 1,000 mls @ 100 mls/hr IV ASDIRECTED [facility] Last Admin: 12/15/18 07:22 Dose: 100 mls/hr Lorazepam (Ativan) 2 mg IVPUSH Q4H PRN PRN Reason: Seizures Lorazepam (Ativan) 0.5 mg IV Q6H PRN PRN Reason: Anxiety Magnesium Sulfate (Pharmacy To Dose - Magnesium Replacement) 0 dose .XX ASDIRECTED PRN PRN Reason: RX TO WATCH MAG Metoprolol Tartrate (Lopressor) 5 mg IVPUSH Q4H PRN PRN Reason: Tachycardia Ondansetron HCl (Zofran) 4 mg IV Q6H PRN PRN Reason: Nausea/Vomiting Polyethylene Glycol (Miralax) 17 gm PO DAILY PRN PRN Reason: Constipation Potassium Chloride (Pharmacy To Dose - Potassium Replacement) 0 dose .XX ASDIRECTED PRN PRN Reason: RX TO WATCH K Saccharomyces Boulardii (Florastor) 250 mg PO BID [facility] Last Admin: 12/14/18 20:23 Dose: 250 mg Senna/Docusate Sodium (Senna Plus) 1 tab PO BID PRN PRN Reason: Constipation [facility] Admin: 12/14/18 17:03 Dose: 0.4 mg Temazepam (Restoril) 7.5 mg PO BEDTIME PRN PRN Reason: Sleep Discontinued Medications Acetaminophen (Tylenol) 975 mg PO NOW ONE Stop: 12/13/18 17:13 Last Admin: 12/13/18 18:15 Dose: 975 mg Calcium Carbonate/Glycine (Tums) 1,000 mg PO ONETIME ONE Stop: 12/14/18 16:11 Last Admin: 12/14/18 16:21 Dose: 1,000 mg Doxazosin Mesylate (Cardura) 2 mg PO BEDTIME [facility] Dextrose/Sodium Chloride (Dextrose 5%-Normal Saline) 1,000 mls @ 250 [facility]ls[facility] Last Admin: 12/13/18 18:14 Dose: 250 mls/hr Levofloxacin/Dextrose 750 mg/ (Premix) 150 mls @ 100 mls/hr IV ONETIME ONE Stop: 12/13/18 18:48 Last Admin: 12/13/18 18:19 Dose: 100 mls/hr Sodium Chloride (Normal Saline) 1,000 mls @ 125 mls/hr IV ASDIRECTED [facility] Stop: 12/15/18 04:59 Last Admin: 12/14/18 06:21 Dose: 125 mls/hr Piperacillin Sod/Tazobactam (Sod 4.5 gm/ Sodium Chloride) 100 mls @ 200 mls/hr IV ONETIME ONE Stop: 12/13/18 21:59 Last Admin: 12/13/18 22:29 Dose: 200 mls/hr Sodium Chloride (Normal Saline) 500 mls @ 999 mls/hr IV .BOLUS ONE Stop: 12/14/18 09:14 Last Admin: 12/14/18 08:51 Dose: 999 mls/hr Magnesium Sulfate/Dextrose 1 (gm/ Premix) 100 mls @ 100 mls/hr IV ONETIME ONE Stop: 12/14/18 10:14 Last Admin: 12/14/18 10:04 Dose: 100 mls/hr Magnesium Oxide (Magnesium Oxide) 400 mg PO ONETIME ONE Stop: 12/13/18 21:01 Last Admin: 12/13/18 22:29 Dose: 400 mg Metoclopramide HCl (Reglan) 10 mg IVPUSH ONETIME ONE Stop: 12/13/18 17:09 Last Admin: 12/13/18 18:18 Dose: 10 mg Potassium Chloride (Klor-Con 10) 40 meq PO Q4H [facility] Stop: 12/14/18 01:01 Last Admin: 12/14/18 00:30 Dose: 40 meq Tamsulosin HCl (Flomax) 0.4 mg PO ONETIME ONE Stop: 12/13/18 22:12 Last Admin: 12/13/18 22:36 Dose: 0.4 mg - Exam Quality Assessment: DVT Prophylaxis General: Alert, Oriented, Cooperative, No Acute Distress HEENT: Pupils Equal, Pupils Reactive, EOMI, Mucous Membr. Moist/[place] Neck: Supple, Trachea Midline, No JVD Lungs: Clear to Auscultation, Normal Respiratory Effort Cardiovascular: Regular Rate, Regular Rhythm GI/Abdominal Exam: Normal Bowel Sounds, Soft, Non-Tender, No Organomegaly, No Distention (Male) Exam: Deferred Back Exam: Normal Inspection, Full Range of Motion Extremities: Normal Inspection, Normal Range of Motion, Non-Tender, No Pedal Edema, Normal Capillary Refill Peripheral Pulses: 3+: Radial (L), Radial (R), Dorsalis Pedis (L), Dorsalis Pedis (R) Skin: Warm, Dry, Intact Neurological: No New Focal Deficit Psy/Mental Status: Alert, Normal Affect, Normal Mood - Problem List & Annotations (1) Acute febrile illness SNOMED Code(s): 359287194 Code(s): R50.9 - FEVER, UNSPECIFIED Status: Resolved Priority: High Current Visit: Yes (2) Nausea and vomiting in adult patient SNOMED Code(s): 33546545 Code(s): R11.2 - NAUSEA WITH VOMITING, UNSPECIFIED Status: Resolved Priority: High Current Visit: Yes (3) Sepsis SNOMED Code(s): 25079596 Code(s): A41.9 - SEPSIS, UNSPECIFIED ORGANISM Status: Resolved Priority: High Current Visit: Yes Qualifiers: Sepsis type: Escherichia coli Qualified Code(s): A41.51 - Sepsis due to Escherichia coli [E. coli] (4) UTI (urinary tract infection) SNOMED Code(s): 69285915 Code(s): N39.0 - URINARY TRACT INFECTION, SITE NOT SPECIFIED Status: Acute Priority: High Current Visit: Yes Qualifiers: Urinary tract infection type: acute pyelonephritis Qualified Code(s): N10 - Acute pyelonephritis (5) Abnormal abdominal CT scan SNOMED Code(s): 97668213438125674 Code(s): R93.5 - ABN FINDINGS ON DX IMAGING OF ABD REGIONS, INC RETROPERITON Status: Chronic Priority: Medium Current Visit: Yes (6) Bladder outlet obstruction SNOMED Code(s): 933056756 Code(s): N32.0 - BLADDER-NECK OBSTRUCTION Status: Acute Priority: High Current Visit: Yes (7) Acute kidney injury SNOMED Code(s): 45380603 Code(s): N17.9 - ACUTE KIDNEY FAILURE, UNSPECIFIED Status: Acute Priority : High Current Visit: Yes - Problem List Review Problem List Initiated/Reviewed/Updated: Yes - My Orders Last 24 Hours: My Active Orders 12/14/18 07:16 CULTURE URINE [RM] Routine 12/14/18 09:30 Sodium Chloride 0.9% [Normal Saline] 1,000 ml IV ASDIRECTED 12/14/18 11:30 Heparin Sodium 5,000 units SUBCUT Q12H 12/14/18 16:15 Famotidine [Pepcid] 20 mg PO DAILY - Plan Plan:: I/P: Acute: Urosepsis -Presented to ED on 12/12/18 and diagnosed with UTI. Started on Macrobid 100mg BID -Failed outpatient treatment -Returned to ED on 12/13/18 with worsening rigors, chills, nausea, and vomiting -No hx/o BPH but significant hx of frequent UTIs and pyelonephritis -Fever of 102 in ED -UA: cloudy with 3+ protein, trace glucose, trace ketones, 3 vessel cold blood, 4.0 urobilinogen, and 1+ leukoesterase noted. -Culture - recinos sensitive e. coli -WBC 17.46-->15.62-->10.52 -CRP 20.8-->28.6-->23.9 -Lactic acid 1.4 -IV fluids as ordered -Levaquin started in ED - continue but switch to PO on 12/16/18 -Start zosyn -> discontinue -CT abdomen/pelvis obtained 12/14/18 (compared to CT abdomen and pelvis from 08/16/17) * 1. Areas of ectasia within the aorta as noted above. Findings are similar to most recent CT study. * 2. Focal area of narrowing within the sigmoid colon and difficult exclude apple core lesion from colonic carcinoma. An DOS he was recommended on prior CT exam, has been performed? * 3. Other incidental findings as noted above which remained stable. -Tylenol as needed for fever -Blood cultures negative thus far -Procalcitonin 0.99 -Probiotic CESARIO, improving -Baseline appears to be creatinine of 1.3 and GFR of 55 -Creatinine 1.5-->1.6-->1.4 -BUN 16-->16-->14 -GFR 46-->43-->50 -IV fluids as ordered Bladder outlet obstruction -Patient reports increased frequency for sometime -EVARISTO by Dr. Neville noted enlarged prostate -CT scan showed diffuse bladder wall thickening and enlarged prostate suggesting bladder outlet obstruction -Started on flomax here with good results -Hx/o frequent UTIs -Will need urology follow-up after discharge Inactive: Abnormal CT scan finding -CT scan shows apple core lesion as above -Reportedly underwent colonoscopy last year with no concerns -Obtain old records -PCP to follow-up after discharge Resolved: S/P Hypomagnesemia -Magnesium 1.7-->1.6-->1.8 -2/2 inadequate intake -Pharmacy to monitor and supplement S/P Malaise/Weakness -Likely 2/2 above -VRP negative -CXR shows nothing acute -Denies cough Chronic: Impaired vision BERONICA - uses CPAP GERD Hx/o Pyelonephritis Recurrent UTIs Arthritis PTSD Obesity Seborrheic Dermatitis Plan: Admit to medical floor Other orders as indicated above Routine AM labs PT/OT CM/SW for discharge planning [facility] Spiritual care consult DVT prophylaxis: Heparin Code status: Full code; PCP: ANA
[2018-12-15] MEDS: Famotidine 20 MG Tab PO SCH (08:41)
[2018-12-15] MEDS: Saccharomyces Boulardii (Probiotic) 250 MG Cap PO SCH ×2 (08:41→21:08)
[2018-12-15] MEDS: Tamsulosin 0.4 MG Cap.ER PO SCH ×2 (08:41→17:52)
[2018-12-15] MEDS: Cholecalciferol (Vitamin D3) 1,000 Unit Tab PO SCH (08:42)
[2018-12-15] MEDS: Heparin Sodium 5,000 Units/ML Vial SUBCUT SCH ×2 (10:39→22:30)
[2018-12-15] MEDS ORDERED: Aluminum Hydroxide/Magnesium Hydroxide/Simethicone Susp 30 ML Cup PO PRN (13:17)
[2018-12-15] MEDS: Levofloxacin/Dextrose 5%-Water 750 MG in Premix Bag 1 BAG IV SCH (16:35)
[2018-12-15] MEDS ORDERED: Simethicone 80 MG Tab.Chew PO PRN (20:48)
--- NOTE | 2018-12-16 07:22 | PCM.DCSUM1 ---
Discharge Summary - Hospital Course HPI Initial Comments: Benji Luu is a 68 yo male who presented to the ED on 12/12/18 with urinary frequency and dysuria. He was diagnosed with urinary tract infection started on Macrobid 100 mg twice a day. He noted his symptoms worsened and he began developing rigors and chills. He tended eat breakfast but could not keep it down. He continues to have dry heaves but no diarrhea. His finally decided to bring him in the afternoon of 12/13/18. He has no history of BPH or previous urinary tract infections. He does have blood in his urine but denies any cough or sputum production. In the ED temperature 38.8 Celsius. Pulse 96. Respirations 22. Blood pressure 147/82. Pulse ox 90%. EKG is obtained showing a sinus rhythm at 90 bpm with a first-degree AV block. There is early R wave transition noted suggesting a possible septal hypertrophy pattern. Labs are obtained: WBC is 17.46. Hemoglobin 15.1. Hematocrit 43.9. He is normocytic. Platelets are good 198,000. Refills are elevated at 85%. There is 1% band neutrophils noted. Sodium was 135. Potassium 3.8. Chloride 101. Anoxic 24. Anion gap 13.8. BUN is 15. Creatinine is elevated at 1.5. EGFR is BUN is 15. Glucose is 179. Calcium 9.0. Magnesium is low at 1.7. Bilirubin high at 1.8. AST 29, ALT 27, alkaline phosphatase 92. CRP is high at 20.8. ProBNP is 353. Protein 7.5. Albumin 3.6. Lactic acid is 1.4. He is given Tylenol and Reglan. He is also started on 750 mg Levaquin. Blood cultures are obtained and are pending. UA cloudy with 3+ protein, trace glucose , trace ketones, 3 vessel cold blood, 4.0 urobilinogen, and 1+ leukoesterase noted. Culture pending He carries a history of impaired vision, sleep apnea with CPAP use, GERD, pyelonephritis, recurrent UTIs, arthritis, PTSD, obesity, seborrheic dermatitis. He is a full code. [facility] Abdomen Diagnosis: Stroke: No - Discharge Data Discharge Date: 12/16/18 (Admit date: 12/13/18) Discharge Disposition: Home, Self-Care 01 Condition: Good - Discharge Diagnosis/Problem(s) (1) Acute febrile illness SNOMED Code(s): 841628719 ICD Code: R50.9 - FEVER, UNSPECIFIED Status: Resolved Priority: High (2) Nausea and vomiting in adult patient SNOMED Code(s): 85105932 ICD Code: R11.2 - NAUSEA WITH VOMITING, UNSPECIFIED Status: Resolved Priority: High (3) Sepsis SNOMED Code(s): 37843307 ICD Code: A41.9 - SEPSIS, UNSPECIFIED ORGANISM Status: Resolved Priority : High Qualifiers: Sepsis type: Escherichia coli Qualified Code(s): A41.51 - Sepsis due to Escherichia coli [E. coli] (4) UTI (urinary tract infection) SNOMED Code(s): 16768009 ICD Code: N39.0 - URINARY TRACT INFECTION, SITE NOT SPECIFIED Status: Acute Priority: High Qualifiers: Urinary tract infection type: acute pyelonephritis Qualified Code(s): N10 - Acute pyelonephritis (5) Abnormal abdominal CT scan SNOMED Code(s): 43358691504678431 ICD Code: R93.5 - ABN FINDINGS ON DX IMAGING OF ABD REGIONS, INC RETROPERITON Status: Chronic Priority: Medium (6) Bladder outlet obstruction SNOMED Code(s): 149185929 ICD Code: N32.0 - BLADDER-NECK OBSTRUCTION Status: Acute Priority: High (7) Acute kidney injury SNOMED Code(s): 85520126 ICD Code: N17.9 - ACUTE KIDNEY FAILURE, UNSPECIFIED Status: Acute Priority: High - Patient Summary/Data Consults: Consultations 12/13/18 20:52 Consult to Case Management/Laborer Pole Crew [CONS] Routine Consult to Sales Order Processor [CONS] Routine Consult to Spiritual Care [CONS] Routine OT Evaluation and Treatment [CONS] Routine PT Evaluation and Treatment [CONS] Routine Labs Pending at D/C: None Recommended Follow-up Testing/Procedures: Follow-up with PCP within 7-10 days of discharge, sooner if needed. -Note abnormal CT scan Follow-up with urology as scheduled. Hospital Course: I/P: Acute: Urosepsis -Presented to ED on 12/12/18 and diagnosed with UTI. Started on Macrobid 100mg BID -Failed outpatient treatment -Returned to ED on 12/13/18 with worsening rigors, chills, nausea, and vomiting -No hx/o BPH but significant hx of frequent UTIs and pyelonephritis -Fever of 102 in ED -UA: cloudy with 3+ protein, trace glucose, trace ketones, 3 vessel cold blood, 4.0 urobilinogen, and 1+ leukoesterase noted. -Culture - recinos sensitive e. coli -WBC 17.46-->15.62-->10.52-->5.99 -CRP 20.8-->28.6-->23.9-->12.8 -Lactic acid 1.4 -IV fluids as ordered -Levaquin started in ED - continue but switch to PO on 12/16/18 -Start zosyn -> discontinue -CT abdomen/pelvis obtained 12/14/18 (compared to CT abdomen and pelvis from 08/16/17) * 1. Areas of ectasia within the aorta as noted above. Findings are similar to most recent CT study. * 2. Focal area of narrowing within the sigmoid colon and difficult exclude apple core lesion from colonic carcinoma. An DOS he was recommended on prior CT exam, has been performed? * 3. Other incidental findings as noted above which remained stable. -Tylenol as needed for fever -Blood cultures negative thus far -Procalcitonin 0.99 -Probiotic CESARIO, improving -Baseline appears to be creatinine of 1.3 and GFR of 55 -Creatinine 1.5-->1.6-->1.4-->1.3 -BUN 16-->16-->14-->13 -GFR 46-->43-->50-->55 -IV fluids as ordered Bladder outlet obstruction -Patient reports increased frequency for sometime -EVARISTO by Dr. Neville noted enlarged prostate -CT scan showed diffuse bladder wall thickening and enlarged prostate suggesting bladder outlet obstruction -Started on flomax here with good results -Hx/o frequent UTIs -Will need urology follow-up after discharge Inactive: Abnormal CT scan finding -CT scan shows apple core lesion as above -Reportedly underwent colonoscopy last year with no concerns -Obtain old records -PCP to follow-up after discharge Resolved: S/P Hypomagnesemia -Magnesium 1.7-->1.6-->1.8 -2/2 inadequate intake -Pharmacy to monitor and supplement S/P Malaise/Weakness -Likely 2/2 above -VRP negative -CXR shows nothing acute -Denies cough Chronic: Impaired vision BERONICA - uses CPAP GERD Hx/o Pyelonephritis Recurrent UTIs Arthritis PTSD Obesity Seborrheic Dermatitis Plan: Admit to medical floor Other orders as indicated above Routine AM labs PT/OT CM/SW for discharge planning Will need urology f/u through the [facility]. Spiritual care consult DVT prophylaxis: Heparin Code status: Full code; PCP: ANA Benji presented to our ED after failing outpatient UTI treatment. He was also quite weak. He started on Levaquin and because he met sepsis criteria Zosyn was added. CT scan of his abdomen and pelvis was obtained as above and a apple core lesion was noted. Radiologist did note this was present on prior exam. Discussed this with patient and his and he reports that after the initial exam he was given a colonoscopy in [place] and nothing abnormal was noted. Due to this finding we stressed that he follow-up with his PCP as this is supplemented that should be watched. He was given IV fluids and responded rapidly to treatment. Zosyn was stopped and he was switched to by mouth Levaquin. Electrolytes were replaced. Because of his malaise and weakness viral respiratory panel was obtained and was negative. He was quite dry and did respond well with IV fluids. Creatinine and GFR were noted to improve. He was noted to have a large prostate on EVARISTO and CT scan. He also has bladder wall thickening. He noted very frequent urination and feeling like he doesn't empty completely. He was started on twice a day Flomax with very good results. He reports his urinary frequency has improved significantly. Due to these findings we recommend he follow-up with a urologist through the [facility]. Recommended he follow-up with his primary care provider within 7-10 days regarding his hospital stay and abnormal CT scan. He was discharged on 8 more days of 500 mg by mouth Levaquin, for a total of 10 days of treatment. He is also discharged on a probiotic and Flomax as mentioned earlier. He did see our dietitian PT and OT evaluated with no concerns. He was discharged home today. He was instructed to return to the ED, a walk-in clinic, or contact his PCP should symptoms return or worsen. - Patient Instructions Diet: Usual Diet as Tolerated Activity: As Tolerated Showering/Bathing: May Shower Notify Provider of: Fever, Increased Pain, Swelling and Redness, Nausea and/or Vomiting Other/Special Instructions: -Follow-up with PCP within 7-10 days. -Resume home meds with the exception of prior antibiotic. -Take all new medications as prescribed. -Finish your newly prescribed levaquin, even if you feel 100% better. -Stay hydrated. -Follow-up with PCP regarding abnormal abdominal scan results as we discussed. -[facility] to arrange [facility]rology follow-up. -Should symptoms return or worsen, contact PCP, a Walk-in clinic, or return to the ED. - Discharge Plan *PRESCRIPTION DRUG MONITORING PROGRAM REVIEWED*: Not Applicable *COPY OF PRESCRIPTION DRUG MONITORING REPORT IN PATIENT CHOCO: Not Applicable Prescriptions/Med Rec: levoFLOXacin [Levaquin] 500 mg PO DAILY #8 tab Saccharomyces Boulardii [Florastor] 250 mg PO BID #20 cap Tamsulosin [Flomax] 0.4 mg PO BIDPC #40 cap.er Home Medications: Home Meds Cholecalciferol (Vitamin D3) [Vitamin D3] 500 unit PO DAILY 06/19/15 [History] Omeprazole Magnesium [Prilosec] 10 mg PO BID 06/19/15 [History] FA/Lycopene/Lut/MV,Ca,Iron,Min [Centrum] 1 tab PO DAILY 10/31/18 [History] Saccharomyces Boulardii [Florastor] 250 mg PO BID #20 cap 12/16/18 [Rx] Tamsulosin [Flomax] 0.4 mg PO BIDPC #40 cap.er 12/16/18 [Rx] levoFLOXacin [Levaquin] 500 mg PO DAILY #8 tab 12/16/18 [Rx] Oxygen Therapy Mode: Room Air Patient Handouts: Benign Prostatic Hyperplasia, Urinary Tract Infection, Adult , [id number] Referrals: Mckenzie Rocha MD [Primary Care Provider] - 12/26/18 12:30 pm - Discharge Summary/Plan Comment DC Time >30 min.: Yes (45 minutes ) - General Info Date of Service: 12/16/18 Admission Dx/Problem (Free Text: Admission Diagnosis/Problem Admission Diagnosis/Problem Urosepsis Subjective Update: In to see Benji. He is sitting on the couch with his . All questions were answered. Discussed dust plan of care after discharge. All are in agreement to this plan. No nursing or patient concerns. Labs and vital signs remained stable. He will be discharged today. Functional Status: Reports: Pain Controlled, Tolerating Diet, Ambulating, Urinating. Denies: New Symptoms - Review of Systems General: Reports: No Symptoms. Denies: Fever, Weakness, Fatigue, Malaise, Chills HEENT: Reports: No Symptoms. Denies: Headaches, Sore Throat Pulmonary: Reports: No Symptoms. Denies: Shortness of Breath, Pleuritic Chest Pain, Cough, Sputum, Wheezing Cardiovascular: Reports: No Symptoms. Denies: Chest Pain, Palpitations, Dyspnea on Exertion, Edema, Lightheadedness Gastrointestinal: Reports: No Symptoms. Denies: Abdominal Pain, Constipation ( Had large BM yesterday ), Diarrhea, Nausea, Vomiting Genitourinary: Reports: No Symptoms. Denies: Frequency (greatly improved ), Pain Musculoskeletal: Reports: No Symptoms Skin: Reports: No Symptoms Neurological: Reports: No Symptoms. Denies: Confusion, Difficulty Walking, Gait Disturbance Psychiatric: Reports: No Symptoms - Patient Data Vitals - Most Recent: Last Vital Signs Temp 99.0 F 12/16/18 02:48 Pulse 69 12/16/18 02:48 Resp 16 12/16/18 02:48 BP 126/79 12/16/18 02:48 Pulse Ox 97 12/16/18 02:48 Weight - Most Recent: 251 lb 8 oz I&O - Last 24 hours: Intake & Output 12/15/18 12/16/18 12/16/18 22:59 06:59 14:59 Intake Total 1183 1200 Output Total 1500 1450 Balance -317 -250 BECKY Results - Last 24 hrs: Microbiology 12/13/18 17:41 Aerobic Blood Culture - Preliminary Blood - Venous NO GROWTH AFTER 2 DAYS Anaerobic Blood Culture - Preliminary NO GROWTH AFTER 2 DAYS 12/13/18 17:31 Aerobic Blood Culture - Preliminary Blood - Venous - Lab Draw NO GROWTH AFTER 2 DAYS Anaerobic Blood Culture - Preliminary NO GROWTH AFTER 2 DAYS Med Orders - Current: Current Medications Acetaminophen/Butalbital/Caffeine (Fioricet 325-50-40 Mg) 1 tab PO Q6H PRN PRN Reason: Headache/Pain Hydrocodone Bitart/Acetaminophen ([place] 325-5 Mg) 1 tab PO Q4H PRN PRN Reason: Pain (moderate 4-6) Last Admin: 03/12/19 22:36 Dose: 1 tab Al Hydroxide/Mg Hydroxide (Mag-Al Plus) 30 ml PO Q4H PRN PRN Reason: Heartburn Last Admin: 12/15/18 13:28 Dose: 30 ml Albuterol/Ipratropium (Duoneb 3.0-0.5 Mg/3 Ml) 3 ml NEB Q4H PRN PRN Reason: Shortness Of Breath/wheezing Bisacodyl (Dulcolax) 5 mg PO DAILY PRN PRN Reason: Constipation Bisacodyl (Dulcolax) 10 mg RECTAL BID PRN PRN Reason: Constipation Cholecalciferol (Vitamin D3) 500 units PO DAILY [facility] Last Admin: 12/15/18 08:42 Dose: 500 units Docusate Sodium (Colace) 100 mg PO BID PRN PRN Reason: Constipation Last Admin: 12/15/18 17:52 Dose: 100 mg Famotidine (Pepcid) 20 mg PO DAILY [facility] Last Admin: 12/15/18 08:41 Dose: 20 mg Heparin Sodium (Porcine) (Heparin Sodium) 5,000 units SUBCUT Q12H [facility] Last Admin: 12/15/18 22:30 Dose: 5,000 units Hydralazine HCl (Apresoline) 20 mg IVPUSH Q4H PRN PRN Reason: Hypertension Last Admin: 12/15/18 08:54 Dose: 20 mg Hydromorphone HCl (Dilaudid) 0.25 mg IVPUSH Q2H PRN PRN Reason: Pain (severe 7-10) Promethazine HCl 6.25 mg/ (Sodium Chloride) 50.25 mls @ 100 mls/hr IV Q6H PRN PRN Reason: Nausea/Vomiting Levofloxacin (Levaquin) 750 mg PO Q24H [facility] Lorazepam (Ativan) 2 mg IVPUSH Q4H PRN PRN Reason: Seizures Lorazepam (Ativan) 0.5 mg IV Q6H PRN PRN Reason: Anxiety Magnesium Sulfate (Pharmacy To Dose - Magnesium Replacement) 0 dose .XX ASDIRECTED PRN PRN Reason: RX TO WATCH MAG Metoprolol Tartrate (Lopressor) 5 mg IVPUSH Q4H PRN PRN Reason: Tachycardia Ondansetron HCl (Zofran) 4 mg IV Q6H PRN PRN Reason: Nausea/Vomiting Polyethylene Glycol (Miralax) 17 gm PO DAILY PRN PRN Reason: Constipation Potassium Chloride (Pharmacy To Dose - Potassium Replacement) 0 dose .XX ASDIRECTED PRN PRN Reason: RX TO WATCH K Saccharomyces Boulardii (Florastor) 250 mg PO BID [facility] Last Admin: 12/15/18 21:08 Dose: 250 mg Senna/Docusate Sodium (Senna Plus) 1 tab PO BID PRN PRN Reason: Constipation Simethicone (Simethicone) 80 mg PO Q6H PRN PRN Reason: Gas Last Admin: 12/15/18 21:09 Dose: 80 mg [facility] Last Admin: 12/15/18 17:52 Dose: 0.4 mg Temazepam (Restoril) 7.5 mg PO BEDTIME PRN PRN Reason: Sleep Discontinued Medications Acetaminophen (Tylenol) 975 mg PO NOW ONE Stop: 12/13/18 17:13 Last Admin: 12/13/18 18:15 Dose: 975 mg Calcium Carbonate/Glycine (Tums) 1,000 mg PO ONETIME ONE Stop: 12/14/18 16:11 Last Admin: 12/14/18 16:21 Dose: 1,000 mg Doxazosin Mesylate (Cardura) 2 mg PO BEDTIME [facility] Dextrose/Sodium Chloride (Dextrose 5%-Normal Saline) 1,000 mls @ 250 mls/hr IV ASDIRECTED [facility] Last Admin: 12/13/18 18:14 Dose: 250 mls/hr Levofloxacin/Dextrose 750 mg/ (Premix) 150 mls @ 100 mls/hr IV ONETIME ONE Stop: 12/13/18 18:48 Last Admin: 12/13/18 18:19 Dose: 100 mls/hr Levofloxacin/Dextrose 750 mg/ (Premix) 150 mls @ 100 mls/hr IV Q24H [facility] Stop: 12/15/18 22:00 Last Admin: 12/15/18 16:35 Dose: 100 mls/hr Sodium Chloride (Normal Saline) 1,000 mls @ 125 mls/hr IV ASDIRECTED [facility] Stop: 12/15/18 04:59 Last Admin: 12/14/18 06:21 Dose: 125 mls/hr Piperacillin Sod/Tazobactam (Sod 4.5 gm/ Sodium Chloride) 100 mls @ 200 mls/hr IV ONETIME ONE Stop: 12/13/18 21:59 Last Admin: 12/13/18 22:29 Dose: 200 mls/hr Piperacillin Sod/Tazobactam (Sod 4.5 gm/ Sodium Chloride) 100 mls @ 25 mls/hr IV Q8H [facility] Last Admin: 12/15/18 12:33 Dose: 25 mls/hr Sodium Chloride (Normal Saline) 500 mls @ 999 mls/hr IV .BOLUS ONE Stop: 12/14/18 09:14 Last Admin: 12/14/18 08:51 Dose: 999 mls/hr Sodium Chloride (Normal Saline) 1,000 mls @ 100 mls/hr IV ASDIRECTED [facility] Last Admin: 12/15/18 07:22 Dose: 100 mls/hr Magnesium Sulfate/Dextrose 1 (gm/ Premix) 100 mls @ 100 mls/hr IV ONETIME ONE Stop: 12/14/18 10:14 Last Admin: 12/14/18 10:04 Dose: 100 mls/hr Magnesium Oxide (Magnesium Oxide) 400 mg PO ONETIME ONE Stop: 12/13/18 21:01 Last Admin: 12/13/18 22:29 Dose: 400 mg Metoclopramide HCl (Reglan) 10 mg IVPUSH ONETIME ONE Stop: 12/13/18 17:09 Last Admin: 12/13/18 18:18 Dose: 10 mg Potassium Chloride (Klor-Con 10) 40 meq PO Q4H [facility] Stop: 12/14/18 01:01 Last Admin: 12/14/18 00:30 Dose: 40 meq Tamsulosin HCl (Flomax) 0.4 mg PO ONETIME ONE Stop: 12/13/18 22:12 Last Admin: 12/13/18 22:36 Dose: 0.4 mg - Exam Quality Assessment: Reports: DVT Prophylaxis General: Reports: Alert, Oriented, Cooperative, No Acute Distress HEENT: Reports: Pupils Equal, Pupils Reactive, EOMI, Mucous Membr. Moist/[place] Neck: Reports: Supple, Trachea Midline Lungs: Reports: Clear to Auscultation, Normal Respiratory Effort Cardiovascular: Reports: Regular Rate, Regular Rhythm GI/Abdominal Exam: Normal Bowel Sounds, Soft, Non-Tender, No Distention, No Abnormal Bruit (Male) Exam: Deferred Rectal (Males) Exam: Deferred Back Exam: Reports: Normal Inspection, Full Range of Motion Extremities: Normal Inspection, Normal Range of Motion, Non-Tender, No Pedal Edema, Normal Capillary Refill Skin: Reports: Warm, Dry, Intact Neurological: Reports: No New Focal Deficit Psy/Mental Status: Reports: Alert, Normal Affect, Normal Mood
[2018-12-16] MEDS: Tamsulosin 0.4 MG Cap.ER PO SCH (08:40)
[2018-12-16] MEDS: Saccharomyces Boulardii (Probiotic) 250 MG Cap PO SCH (08:40)
[2018-12-16] MEDS: Famotidine 20 MG Tab PO SCH (08:40)
[2018-12-16] MEDS: Cholecalciferol (Vitamin D3) 1,000 Unit Tab PO SCH (08:41)
[2018-12-16 09:25] VITALS: BP 148/77
[2018-12-16] MEDS ORDERED: Levofloxacin 750 MG Tab PO SCH (17:00)
== END 2018-12-16 11:42 | disposition home or self-care (01) | DRG 872 ==
LOC: JD.ED 16:34 → JD.MS 19:14
PROVIDERS: ADMIT Internal Medicine; ATTEND Internal Medicine
DX: A41.51 Sepsis due to Escherichia coli [E. coli] (principal); N10 Acute pyelonephritis; N17.9 Acute kidney failure, unspecified; N13.8 Other obstructive and reflux uropathy; H54.7 Unspecified visual loss; K21.9 Gastro-esophageal reflux disease without esophagitis; F43.10 Post-traumatic stress disorder, unspecified; E66.9 Obesity, unspecified; L21.9 Seborrheic dermatitis, unspecified; N40.1 Benign prostatic hyperplasia with lower urinary tract symptoms; R35.0 Frequency of micturition; E83.42 Hypomagnesemia; G47.33 Obstructive sleep apnea (adult) (pediatric); M19.90 Unspecified osteoarthritis, unspecified site; R93.5 Abnormal findings on diagnostic imaging of other abdominal regions, including retroperitoneum; Z88.8 Allergy status to other drugs, medicaments and biological substances; Z91.013 Allergy to seafood; Z79.899 Other long term (current) drug therapy; Z68.30 Body mass index [BMI] 30.0-30.9, adult; Z91.14 Patient's other noncompliance with medication regimen; Z87.440 Personal history of urinary (tract) infections
CPT/HCPCS: 36415; 71045; 71045-26; 74176; 74176-26; 80048; 80053; 81003; 82306; 83036; 83605; 83735; 83880; 84145; 84439; 84443; 85007; 85025; 85027; 86140; 87040; 87086; 87486; 87581; 87632; 87798; 93005; 93010; 96365; 96366; 96375; 97161-GP; 97165-GO; 99284-25; 99285; A9270-GY; J0360; J1644; J1956; J2543; J2765; J3475; J7030; J7040; J7042

== ENCOUNTER 2019-03-02 15:54 | Emergency (ER) | payer OTHER, MEDICARE ==
[2019-03-02 16:07] VITALS: BP 146/85
--- NOTE | 2019-03-02 16:12 | EDM.PDOC ---
ED HPI GENERAL MEDICAL PROBLEM - General Chief Complaint: Lower Extremity Injury/Pain Stated Complaint: [facility] BY [facility] Time Seen by Provider: 03/02/19 16:20 Source of Information: Reports: Patient, RN Notes Reviewed - History of Present Illness INITIAL COMMENTS - FREE TEXT/NARRATIVE: 68-year-old male comes in with left posterior calf pain. He states this first started about 2 weeks ago. He also has been having some discomfort and swelling of the right distal medial thigh. He noticed swelling, tenderness and erythema there few days ago. He did have that checked at the clinic yesterday. They did do an ultrasound of his right lower leg, diagnosed superficial thrombophlebitis. He said that he did mention the left leg and there was a tentative plan to ultrasound that as well but it did not get done. The pain of his left posterior calf is worse today. He states that he does spend a lot of time when working in a sitting position with his legs down. 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 Left Lower Leg Pain Score (Numeric/FACES): 2 - Related Data Allergies Allergy/AdvReac Type Severity Reaction Status Date / Time iodine Allergy Other Verified 03/02/19 16:08 sildenafil Allergy Other Verified 03/02/19 16:08 seafood Allergy Hives Uncoded 03/02/19 16:08 Home Meds: Home Meds Cholecalciferol (Vitamin D3) [Vitamin D3] 500 unit PO DAILY 06/19/15 [History] Omeprazole Magnesium [Prilosec] 10 mg PO BID 06/19/15 [History] FA/Lycopene/Lut/MV,Ca,Iron,Min [Centrum] 1 tab PO DAILY 10/31/18 [History] Rivaroxaban [Xarelto] 10 mg PO DAILY #45 tablet 03/02/19 [Rx] Past Medical History HEENT History: Reports: Impaired Vision Other HEENT History: wears eyeglasses Respiratory History: Reports: Sleep Apnea Other Respiratory History: uses CPAP machine Gastrointestinal History: Reports: GERD Genitourinary History: Reports: Pyelonephritis, UTI, Recurrent Musculoskeletal History: Reports: Arthritis Psychiatric History: Reports: PTSD, Other (See Below) Endocrine/Metabolic History: Reports: Obesity/BMI 30+ Dermatologic History: Reports: Seborrheic Dermatitis - Past Surgical History HEENT Surgical History: Reports: Oral Surgery GI Surgical History: Reports: Hernia, Inguinal Musculoskeletal Surgical History: Reports: Arthroscopic Knee Social & Family History - Family History Family Medical History: Noncontributory - Tobacco Use Smoking Status *Q: Never Smoker Second Hand Smoke Exposure: No - Caffeine Use Caffeine Use: Reports: Coffee - Recreational Drug Use Recreational Drug Use: No - Living Situation & Occupation Living situation: Reports: , with Spouse 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) Review of Systems - Review of Systems Review Of Systems: See Below Respiratory: Denies: Shortness of Breath Cardiovascular: Denies: Chest Pain Musculoskeletal: Reports: Leg Pain (Left posterior calf) Skin: Reports: Erythema (He does have some very mild warmth and erythema of the distal right medial thigh, no warmth or erythema of the left lower leg.) Neurological: Reports: No Symptoms ED EXAM, GENERAL - Physical Exam Exam: See Below General Appearance: Alert, No Apparent Distress Throat/Mouth: Normal Inspection Head: No: Facial Swelling Neck: Supple Respiratory/Chest: No Respiratory Distress, Lungs Clear, Normal Breath Sounds Cardiovascular: Regular Rate, Rhythm Extremities: Leg Pain (There is tenderness of the left posterior mid calf, no visible or palpable warmth swelling or erythema. Left knee is nontender without swelling warmth or erythema, foot and ankle exam normal), Other (He does have some superficial veins that are somewhat firm tender with very mild overlying erythema.) Skin Exam: Warm, Dry, Normal Color Course - Vital Signs Last Recorded V/S: Last Vital Signs Temp 97.7 F 03/02/19 16:04 Pulse 58 L 03/02/19 16:04 Resp 16 03/02/19 16:04 BP 146/85 H 03/02/19 16:04 Pulse Ox 95 03/02/19 16:04 - Re-Assessments/Exams Free Text/Narrative Re-Assessment/Exam: 03/03/19 06:59 US of LLE shows extensive thrombosis of the superfiscial veins of the LLE extremity including the saphenous and greater saphenous veins. See Radiologist report for details. He will be started on xarelto 10 mg daily. Discharge instr. as documented. Departure - Departure Time of Disposition: 18:04 Disposition: Home, Self-Care 01 Condition: Fair Clinical Impression: Superficial thrombophlebitis of left leg - Discharge Information Prescriptions: Rivaroxaban [Xarelto] 10 mg PO DAILY #45 tablet Instructions: Thrombophlebitis Referrals: Mckenzie Rocha MD [Primary Care Provider] - Forms: ED Department Discharge, ED Return to Work/School Form Additional Instructions: elevate both legs as much as possible when resting. Moderate walking is OK but do not sit or stand for prolonged times. Xarelto 10 mg daily for 45 days. Prescription has been sent electronically to clinic pharmacy. Follow up with your regular medical provider or [facility] for recheck. Return to ED as needed if symptoms worsening in any way.
--- NOTE | 2019-03-02 17:35 | US ---
Left lower extremity deep venous ultrasound: Duplex and color flow imaging was obtained of the right common femoral, left common femoral, left greater saphenous and superficial femoral veins as well as popliteal and posterior tibial veins. Superficial saphenous vein also evaluated. Thrombus is identified throughout the the superficial saphenous vein. Thrombus also noted within greater saphenous vein which is mostly nonoccluding. Within the calf, thrombus is seen within the greater saphenous and superficial saphenous veins and adjacent calf varicosities. These areas of thrombosis within the calf correlates to the lump/swelling noted within the clinical history within the left calf. No deep venous thrombosis is seen. Impression: 1. Superficial thrombophlebitis as described above. Findings within the calf correlate to lump/swelling noted in clinical history. 2. No thrombus is seen at this time within the deep venous system. Diagnostic code #3
== END 2019-03-02 18:15 | disposition home or self-care (01) ==
LOC: JD.ED 15:54
DX: I80.02 Phlebitis and thrombophlebitis of superficial vessels of left lower extremity (principal); Z91.013 Allergy to seafood; Z88.8 Allergy status to other drugs, medicaments and biological substances; Z87.440 Personal history of urinary (tract) infections; Z79.899 Other long term (current) drug therapy; Z98.890 Other specified postprocedural states
CPT/HCPCS: 93971-26-LT; 93971-LT; 99283-25; 99284

== ENCOUNTER 2021-06-01 14:47 | Emergency (ER) | payer BC, OTHER ==
--- NOTE | 2021-06-01 15:19 | EDM.PDOC ---
ED HPI GENERAL MEDICAL PROBLEM - General Chief Complaint: Genitourinary Problem Stated Complaint: poss uti Time Seen by Provider: 06/01/21 14:56 Source of Information: Reports: Patient History Limitations: Reports: No Limitations - History of Present Illness INITIAL COMMENTS - FREE TEXT/NARRATIVE: The patient presents with dysuria and hematuria. He is worried he may have a UTI. He has a history of UTIs in the past. He started with urinary frequency and then burning with urination and hematuria. He has no fever or chills. He has been going over 10 to 15 minutes. Onset: Today Duration: Hour(s): Severity: Moderate Improves with: Reports: None Worsens with: Reports: None Associated Symptoms: Reports: No Other Symptoms Lower Pelvic Pain Score (Numeric/FACES): 5 - Related Data Allergies Allergy/AdvReac Type Severity Reaction Status Date / Time capsaicin Allergy Other Verified 06/01/21 15:05 gabapentin Allergy Other Verified 06/01/21 15:05 iodine Allergy Other Verified 06/01/21 15:05 nortriptyline Allergy Other Verified 06/01/21 15:05 pregabalin [From Lyrica] Allergy Other Verified 06/01/21 15:05 sildenafil Allergy Other Verified 06/01/21 15:05 seafood Allergy Hives Uncoded 06/01/21 15:05 Home Meds: Home Meds Cholecalciferol (Vitamin D3) [Vitamin D3] 1,000 unit PO DAILY 06/19/15 [History] Omeprazole Magnesium [Prilosec] 10 mg PO BID 06/19/15 [History] FA/Lycopene/Lut/MV,Ca,Iron,Min [Centrum] 1 tab PO DAILY 10/31/18 [History] Prazosin [Minpress] 1 mg PO BEDTIME 06/01/21 [History] cephALEXin [Keflex] 500 mg PO BID #10 cap 06/01/21 [Rx] Past Medical History HEENT History: Reports: Impaired Vision Other HEENT History: wears eyeglasses Respiratory History: Reports: Sleep Apnea Other Respiratory History: uses CPAP machine Gastrointestinal History: Reports: GERD Genitourinary History: Reports: Pyelonephritis, UTI, Recurrent Musculoskeletal History: Reports: Arthritis Psychiatric History: Reports: PTSD, Other (See Below) Endocrine/Metabolic History: Reports: Obesity/BMI 30+ Dermatologic History: Reports: Seborrheic Dermatitis - Past Surgical History HEENT Surgical History: Reports: Oral Surgery GI Surgical History: Reports: Hernia, Inguinal Musculoskeletal Surgical History: Reports: Arthroscopic Knee Social & Family History - Family History Family Medical History: No Pertinent Family History - Caffeine Use Caffeine Use: Reports: Coffee - Living Situation & Occupation Living situation: Reports: , with Spouse 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) ED ROS GENERAL - Review of Systems Review Of Systems: See Below Constitutional: Reports: No Symptoms HEENT: Reports: No Symptoms Respiratory: Reports: No Symptoms Cardiovascular: Reports: No Symptoms Endocrine: Reports: No Symptoms GI/Abdominal: Reports: No Symptoms : Reports: Dysuria Musculoskeletal: Reports: No Symptoms Skin: Reports: No Symptoms ED EXAM, RENAL/ - Physical Exam Exam: See Below Exam Limited By: No Limitations General Appearance: Alert, No Apparent Distress Ears: Normal External Exam Nose: Normal Inspection Head: Atraumatic, Normocephalic Neck: Normal Inspection Respiratory/Chest: No Respiratory Distress, Lungs Clear, Normal Breath Sounds Cardiovascular: Regular Rate, Rhythm, No Edema, No Murmur GI/Abdominal: Soft, Non-Tender, No Organomegaly, No Mass Extremities: Normal Inspection Neurological: Alert, Oriented, No Motor/Sensory Deficits Course - Vital Signs Last Recorded V/S: Last Vital Signs Temp 96.9 F 06/01/21 14:55 Pulse 70 06/01/21 14:55 Resp 18 06/01/21 14:55 BP 174/83 H 06/01/21 14:55 Pulse Ox 97 06/01/21 14:55 - Orders/Labs/Meds Orders: Active Orders 24 hr Category Date Time Status CULTURE URINE [MREF] Stat Lab 06/01/21 15:00 Received Phenazopyridine [Urinary Pain Relief] Med 06/01/21 19:00 Active 95 mg PO TIDPC cefTRIAXone 1 GM withLidocaine 1% 2.1 ML IM Onetime Med 06/01/21 15:43 Ordered cefTRIAXone [Rocephin] 1 gm Lidocaine 1% [Xylocaine 1%] 2.1 ml IM ONETIME Medication Orders Phenazopyridine HCl (Phenazopyridine 95 Mg Tab) 95 mg PO TIDPC PERRI Labs: Laboratory Tests 06/01/21 Range/Units 15:00 Urine Color Yellow (Yellow) Urine Appearance Slt cloudy H (Clear) Urine pH 6.5 (5.0-8.0) Ur Specific [place] 1.015 (1.005-1.030) Urine Protein 2+ H (Negative) Urine Glucose (UA) Negative (Negative) Urine Ketones Negative (Negative) Urine Occult Blood 3+ H (Negative) Urine Nitrite Negative (Negative) Urine Bilirubin Negative (Negative) Urine Urobilinogen 0.2 (0.2-1.0) Ur Leukocyte Esterase 3+ H (Negative) Urine RBC 75-100 H (0-5) /hpf Urine WBC 40-50 H (0-5) /hpf Ur Squamous Epith Cells 0-5 (0-5) /hpf Urine Bacteria Moderate H (FEW) /hpf Urine Mucus Few (FEW) /hpf Meds: Medications Generic Name Dose Route Start Last Admin Trade Name Freq PRN Reason Stop Dose Admin Phenazopyridine HCl 95 mg 06/01/21 19:00 Phenazopyridine 95 Mg Tab PO TIDPC PERRI Discontinued Medications Generic Name Dose Route Start Last Admin Trade Name Freq PRN Reason Stop Dose Admin Phenazopyridine HCl Confirm 06/01/21 15:24 06/01/21 15:27 Phenazopyridine 95 Mg Tab Administered 06/01/21 15:25 Not Given Dose 95 mg .ROUTE .STK-MED ONE Phenazopyridine HCl 95 mg 06/01/21 15:26 06/01/21 15:28 Phenazopyridine 95 Mg Tab PO 06/01/21 15:27 95 mg TIDPC STA Administration - Re-Assessments/Exams Free Text/Narrative Re-Assessment/Exam: 06/01/21 15:19 I ordered a UA and pyridium. 06/01/21 15:44 His UA shows he has a UTI. I have ordered rocephin 1 gram IM. I will discharge him on some keflex. Departure - Departure Time of Disposition: 15:45 Disposition: Home, Self-Care 01 Condition: Good Clinical Impression: UTI (urinary tract infection) Qualifiers: Urinary tract infection type: acute pyelonephritis Qualified Code(s): N10 - Acute pyelonephritis - Discharge Information *PRESCRIPTION DRUG MONITORING PROGRAM REVIEWED*: Not Applicable *COPY OF PRESCRIPTION DRUG MONITORING REPORT IN PATIENT CHOCO: Not Applicable Prescriptions: cephALEXin [Keflex] 500 mg PO BID #10 cap Referrals: PCP,Not In Area [Primary Care Provider] - Forms: ED Department Discharge Additional Instructions: Drink plenty of fluids. Take the keflex 2 times per day for 5 days. Take tylenol or motrin as needed for pain. Follow up with your doctor within a week. Please return if you are worse. Sepsis Event Note (ED) - Evaluation Sepsis Screening Result: No Definite Risk - Focused Exam Vital Signs: Vital Signs Temp Pulse Resp BP Pulse Ox 06/01/21 14:55 96.9 F 70 18 174/83 H 97 - My Orders Last 24 Hours: My Active Orders 06/01/21 15:00 CULTURE URINE [MREF] Stat 06/01/21 15:43 cefTRIAXone 1 GM withLidocaine 1% 2.1 ML IM Onetime cefTRIAXone [Rocephin] 1 gm Lidocaine 1% [Xylocaine 1%] 2.1 ml IM ONETIME 06/01/21 19:00 Phenazopyridine [Urinary Pain Relief] 95 mg PO TIDPC - Assessment/Plan Last 24 Hours: My Active Orders 06/01/21 15:00 CULTURE URINE [MREF] Stat 06/01/21 15:43 cefTRIAXone 1 GM withLidocaine 1% 2.1 ML IM Onetime cefTRIAXone [Rocephin] 1 gm Lidocaine 1% [Xylocaine 1%] 2.1 ml IM ONETIME 06/01/21 19:00 Phenazopyridine [Urinary Pain Relief] 95 mg PO TIDPC
[2021-06-01] MEDS ORDERED: Phenazopyridine 95 MG Tab ONE (15:24)
[2021-06-01] MEDS ORDERED: Phenazopyridine 95 MG Tab PO STA (15:26)
[2021-06-01] MEDS ORDERED: cefTRIAXone 1 GM, Lidocaine 1% 2.1 ML IM ONE ×2 (15:43)
[2021-06-01 16:09] VITALS: BP 170/78; PULSE 60
[2021-06-01] MEDS ORDERED: Phenazopyridine 95 MG Tab PO SCH (19:00)
== END 2021-06-01 16:10 | disposition home or self-care (01) ==
LOC: JD.ED 14:47
DX: N10 Acute pyelonephritis (principal); K21.9 Gastro-esophageal reflux disease without esophagitis; E66.9 Obesity, unspecified; Z79.899 Other long term (current) drug therapy; Z88.5 Allergy status to narcotic agent; Z88.8 Allergy status to other drugs, medicaments and biological substances; Z91.013 Allergy to seafood; Z68.31 Body mass index [BMI] 31.0-31.9, adult
CPT/HCPCS: 81001; 87086; 87088; 87186; 96372; 99283; A9270; J0696

== ENCOUNTER 2022-05-10 10:53 | Emergency (ER) | payer BC, OTHER ==
[2022-05-10 11:06] VITALS: BP 167/67; PULSE 48
[2022-05-10] MEDS ORDERED: Aspirin 81 MG Tab.Chew PO ONE (11:20)
[2022-05-10] MEDS: Sodium Chloride 0.9% 10 ML Syringe FLUSH PRN ×2 (11:30→15:12)
[2022-05-10] MEDS ORDERED: Ondansetron 4 MG/2 ML SDV IVPUSH ONE (15:02)
== END 2022-05-10 18:09 ==
LOC: JD.ED 10:53 → SUPCPDRO 10:53 → JD.ED 18:09
DX: I20.0 Unstable angina (principal); R00.1 Bradycardia, unspecified; I10 Essential (primary) hypertension; E11.9 Type 2 diabetes mellitus without complications; E66.9 Obesity, unspecified; F17.210 Nicotine dependence, cigarettes, uncomplicated; Z68.30 Body mass index [BMI] 30.0-30.9, adult; Z91.013 Allergy to seafood; Z88.5 Allergy status to narcotic agent; Z79.899 Other long term (current) drug therapy; Z86.16 Personal history of COVID-19; Z20.822 Contact with and (suspected) exposure to COVID-19
CPT/HCPCS: 36415; 71045; 80053; 83735; 84484; 85025; 87635; 93005; 96374; 99285; A9270; J2405; J3490; U0002

== ENCOUNTER 2022-07-08 08:00 | Emergency (ER) | payer OTHER ==
[2022-08-10 14:03] LABS: ESTIMATED GFR 58 mL/min (>60)
== END 2022-07-08 15:30 | disposition home or self-care (01) ==
LOC: JD.ED 08:00
DX: I47.20 Ventricular tachycardia, unspecified (principal); J44.9 Chronic obstructive pulmonary disease, unspecified; I10 Essential (primary) hypertension; E11.9 Type 2 diabetes mellitus without complications
CPT/HCPCS: 36415; 71045; 71045-26; 80053; 82553; 83735; 83880; 84443; 84484; 85025; 85379; 85610; 85730; 86140; 99285

== ENCOUNTER 2022-09-02 12:16 | Emergency (ER) | payer OTHER ==
[2022-09-02] MEDS ORDERED: Sodium Chloride 0.9% 10 ML Syringe FLUSH PRN ×2 (12:54→15:26)
[2022-09-02 13:31] LABS: ESTIMATED GFR 58 mL/min (>60)
[2022-09-02] MEDS ORDERED: methylPREDNISolone Sodium Succinate 125 MG/2 ML SDV IVPUSH ONE (13:53)
[2022-09-02] MEDS ORDERED: Famotidine 20 MG/2 ML SDV IVPUSH ONE (13:54)
[2022-09-02] MEDS ORDERED: diphenhydrAMINE 50 MG/ML SDV IVPUSH ONE (13:54)
[2022-09-02] MEDS ORDERED: Iopamidol 755 Mg/ML 100 ML Bottle IVPUSH ONE (15:26)
[2022-09-02] MEDS ORDERED: Sodium Chloride 0.9% 45 ML IV SCH (15:30)
[2022-09-02] MEDS ORDERED: Heparin Sodium 5,000 Units/ML Vial IVPUSH ONE (17:29)
[2022-09-02] MEDS ORDERED: Heparin Sodium/D5W 25,000 UNITS/500 ML BAG IV SCH (17:30)
[2022-09-02 19:35] VITALS: BP 170/81; PULSE 67
== END 2022-09-02 19:38 ==
LOC: JD.ED 12:16
DX: I82.431 Acute embolism and thrombosis of right popliteal vein (principal); R00.1 Bradycardia, unspecified; I10 Essential (primary) hypertension; E11.9 Type 2 diabetes mellitus without complications; K21.9 Gastro-esophageal reflux disease without esophagitis; E66.9 Obesity, unspecified; Z68.29 Body mass index [BMI] 29.0-29.9, adult; Z79.899 Other long term (current) drug therapy; Z91.013 Allergy to seafood; Z88.8 Allergy status to other drugs, medicaments and biological substances
CPT/HCPCS: 36415; 71046; 71275; 80053; 83880; 84484; 85025; 85379; 85610; 85730; 86140; 87635; 93005; 93971; 96365; 96366; 96375; 96376; 99285; J1200; J1644; J2930; J3490; Q9967; U0002

== ENCOUNTER 2023-01-24 10:25 | Emergency (ER) | payer OTHER ==
[2023-01-24 10:36] VITALS: BP 139/76; PULSE 78
[2023-01-24] MEDS ORDERED: Sodium Chloride 0.9% 10 ML Syringe FLUSH PRN (10:42)
[2023-01-24] MEDS ORDERED: Aspirin 81 MG Tab.Chew PO ONE (10:42)
[2023-01-24] MEDS ORDERED: Alum Hydrox/Mag Hydrox/Simeth 30 ML, Lidocaine 2% 15 ML PO STA ×2 (11:42)
== END 2023-01-24 13:25 | disposition home or self-care (01) ==
LOC: JD.ED 10:25
DX: K21.9 Gastro-esophageal reflux disease without esophagitis (principal); I44.0 Atrioventricular block, first degree; I48.0 Paroxysmal atrial fibrillation; I25.10 Atherosclerotic heart disease of native coronary artery without angina pectoris; I10 Essential (primary) hypertension; E11.9 Type 2 diabetes mellitus without complications; E66.9 Obesity, unspecified; Z68.30 Body mass index [BMI] 30.0-30.9, adult; Z86.16 Personal history of COVID-19; Z87.891 Personal history of nicotine dependence; Z88.8 Allergy status to other drugs, medicaments and biological substances; Z88.6 Allergy status to analgesic agent; Z91.013 Allergy to seafood; Z79.84 Long term (current) use of oral hypoglycemic drugs; Z79.02 Long term (current) use of antithrombotics/antiplatelets; Z79.899 Other long term (current) drug therapy
CPT/HCPCS: 36415; 71045; 80053; 83735; 83880; 84484; 85025; 85379; 85610; 93005; 99285; A9270; J3490; 93010; 99284

== ENCOUNTER 2024-04-19 11:52 | Emergency (ER) | payer OTHER ==
[2024-04-19] MEDS ORDERED: Sodium Chloride 0.9% 10 ML Syringe FLUSH PRN (12:11)
[2024-04-19] MEDS: Sodium Chloride 0.9% 500 ML IV SCH (12:38)
[2024-04-19] MEDS: Sodium Chloride 0.9% 10 ML Syringe FLUSH PRN (12:38)
[2024-04-19 12:42] LABS: BASOPHILS PERCENT AUTO 0.5 % (0.0-1.0); EOSINOPHILS ABSOLUTE AUTO 0.1 K/mm3 (0.0-0.4); EOSINOPHILS PERCENT AUTO 1.8 % (0.0-6.0); HEMATOCRIT 42.4 % (42.0-52.0); HEMOGLOBIN 14.6 gm/dl (14.0-18.0); IMMATURE GRAN ABSOLUTE AUTO 0.01 K/mm3 (0.00-0.05); IMMATURE GRAN PERCENT AUTO 0.2 % (0.0-0.4); LYMPHOCYTES ABSOLUTE AUTO 1.2 K/mm3 (1.0-4.8); LYMPHOCYTES PERCENT AUTO 17.9 % (24.0-44.0); MEAN CORPUSCULAR HEMOGLOBIN 31.7 pg (28.0-32.0); MEAN CORPUSCULAR HGB CONC 34.4 g/dl (32.0-36.0); MONOCYTES ABSOLUTE AUTO 0.7 K/mm3 (0.0-0.8); MONOCYTES PERCENT AUTO 11.1 % (0.0-8.0); NEUTROPHILS ABSOLUTE AUTO 4.5 K/mm3 (1.8-7.7); NEUTROPHILS PERCENT AUTO 68.5 % (41.0-71.0); PLATELET COUNT,PLT 179 K/mm3 (150-400); RED BLOOD CELL COUNT 4.61 M/mm3 (4.52-5.90)
[2024-04-19 12:54] LABS: A/G RATIO 1.3 (1-2); ALBUMIN 3.7 g/dl (3.4-5.0); ANION GAP 15.3 (5-15); BILIRUBIN TOTAL 0.6 mg/dL (0.2-1.0); BUN/CREATININE RATIO 14.7 (14-18); CALCIUM 8.7 mg/dL (8.5-10.1); CREATININE 1.5 mg/dL (0.7-1.3); EST CRCL DRUG DOSING (CG) 53.63 mL/min; MAGNESIUM 2.1 mg/dL (1.8-2.4); POTASSIUM,K 4.3 mEq/L (3.5-5.1); PROTEIN TOTAL,TP 6.6 g/dl (6.4-8.2)
[2024-04-19] MEDS: Aspirin 81 MG Tab.Chew PO ONE (13:00)
[2024-04-19] MEDS: methylPREDNISolone Sodium Succinate 125 MG/2 ML SDV IVPUSH ONE (13:00)
[2024-04-19] MEDS: diphenhydrAMINE 50 MG/ML SDV IVPUSH ONE (13:00)
[2024-04-19 14:38] LABS: INR 1.08; PROTHROMBIN TIME 11.4 SECONDS (9.7-12.0)
[2024-04-19 14:39] VITALS: BP 156/78; PULSE 54
[2024-04-19 14:40] LABS: PTT,PARTIAL THROMBOPLSTIN TIME 29.1 SECONDS (21.7-31.4)
== END 2024-04-19 14:05 ==
LOC: JD.ED 11:52
DX: R53.1 Weakness (principal); R20.0 Anesthesia of skin; I10 Essential (primary) hypertension; I25.10 Atherosclerotic heart disease of native coronary artery without angina pectoris; I48.91 Unspecified atrial fibrillation; K21.9 Gastro-esophageal reflux disease without esophagitis; E11.9 Type 2 diabetes mellitus without complications; E66.9 Obesity, unspecified; Z86.16 Personal history of COVID-19; Z68.31 Body mass index [BMI] 31.0-31.9, adult; Z79.01 Long term (current) use of anticoagulants; Z79.84 Long term (current) use of oral hypoglycemic drugs; Z79.899 Other long term (current) drug therapy; Z91.048 Other nonmedicinal substance allergy status; Z88.8 Allergy status to other drugs, medicaments and biological substances; Z91.013 Allergy to seafood
CPT/HCPCS: 36415; 70450; 70450-26; 80053; 82947; 83735; 84484; 85025; 85610; 85730; 93005; 96374; 96375; 99285-25; A9270-GY; J1200; J2919; J3490; J7040

== ENCOUNTER 2024-10-11 08:09 | Emergency (ER) | payer OTHER ==
[2024-10-11] MEDS ORDERED: cefTRIAXone 500 MG Vial IVPUSH ONE (08:20)
[2024-10-11] MEDS: Ondansetron 4 MG/2 ML SDV IVPUSH ONE (09:34)
[2024-10-11 09:36] LABS: BASOPHILS PERCENT AUTO 0.1 % (0.0-1.0); EOSINOPHILS PERCENT AUTO 0.1 % (0.0-6.0); HEMATOCRIT 43.4 % (42.0-52.0); HEMOGLOBIN 14.7 gm/dl (14.0-18.0); IMMATURE GRAN ABSOLUTE AUTO 0.11 K/mm3 (0.00-0.05); IMMATURE GRAN PERCENT AUTO 0.8 % (0.0-0.4); LYMPHOCYTES ABSOLUTE AUTO 0.2 K/mm3 (1.0-4.8); LYMPHOCYTES PERCENT AUTO 1.8 % (24.0-44.0); MEAN CORPUSCULAR HEMOGLOBIN 31.1 pg (28.0-32.0); MEAN CORPUSCULAR HGB CONC 33.9 g/dl (32.0-36.0); MEAN CORPUSCULAR VOLUME 91.9 fl (83.0-99.0); MEAN PLATELET VOLUME 10.3 fl (9.4-12.4); MONOCYTES ABSOLUTE AUTO 0.5 K/mm3 (0.0-0.8); MONOCYTES PERCENT AUTO 3.7 % (0.0-8.0); NEUTROPHILS ABSOLUTE AUTO 12.5 K/mm3 (1.8-7.7); NEUTROPHILS PERCENT AUTO 93.5 % (41.0-71.0); PLATELET COUNT,PLT 153 K/mm3 (150-400); RED BLOOD CELL COUNT 4.72 M/mm3 (4.52-5.90); WHITE BLOOD CELL COUNT,WBC 13.35 K/mm3 (3.9-11.3)
[2024-10-11] MEDS: cefTRIAXone 1 GM Vial IVPUSH ONE (09:36)
[2024-10-11] MEDS: Sodium Chloride 0.9% 1,000 ML IV ONE (09:40)
[2024-10-11 10:01] LABS: A/G RATIO 1.1 (1-2); ALBUMIN 3.5 g/dl (3.4-5.0); ANION GAP 18.8 (5-15); BILIRUBIN TOTAL 1.5 mg/dL (0.2-1.0); BUN/CREATININE RATIO 8.8 (14-18); CALCIUM 8.8 mg/dL (8.5-10.1); CREATININE 1.7 mg/dL (0.7-1.3); EST CRCL DRUG DOSING (CG) 35.76 mL/min; POTASSIUM,K 3.8 mEq/L (3.5-5.1); PROTEIN TOTAL,TP 6.8 g/dl (6.4-8.2)
[2024-10-11 12:28] LABS: APPEARANCE,URINE SLT CLOUDY (Clear); BILIRUBIN,URINE 1+ (Negative); COLOR,URINE DARK YELLOW (Yellow); GLUCOSE,URINE TRACE (Negative); KETONES,URINE TRACE (Negative); LEUKOCYTE ESTERASE,URINE 1+ (Negative); NITRITE,URINE POSITIVE (Negative); OCCULT BLOOD,URINE 2+ (Negative); PH,URINE 5.5 (5.0-8.0); PROTEIN,URINE 2+ (Negative)
[2024-10-11 12:37] LABS: BACTERIA,URINE MANY /hpf (FEW); EPITHELIAL CELLS,URINE 0-5 /hpf (0-5); HYALINE CASTS,URINE 0-5 /lpf (0-5); MUCUS,URINE NOT SEEN /hpf (FEW); WBC,URINE TOO NUMEROUS TO CNT /hpf (0-5)
[2024-10-11 16:30] VITALS: BP 119/39; PULSE 78
== END 2024-10-11 13:19 ==
LOC: JD.ED 08:09
DX: I21.4 Non-ST elevation (NSTEMI) myocardial infarction (principal); N39.0 Urinary tract infection, site not specified; R19.7 Diarrhea, unspecified; I48.91 Unspecified atrial fibrillation; I25.10 Atherosclerotic heart disease of native coronary artery without angina pectoris; I10 Essential (primary) hypertension; K21.9 Gastro-esophageal reflux disease without esophagitis; E11.42 Type 2 diabetes mellitus with diabetic polyneuropathy; E66.9 Obesity, unspecified; Z86.16 Personal history of COVID-19; Z95.5 Presence of coronary angioplasty implant and graft; Z88.8 Allergy status to other drugs, medicaments and biological substances; Z91.013 Allergy to seafood; Z79.01 Long term (current) use of anticoagulants; Z79.84 Long term (current) use of oral hypoglycemic drugs; Z79.899 Other long term (current) drug therapy; Z68.38 Body mass index [BMI] 38.0-38.9, adult
CPT/HCPCS: 36415; 70450; 71045; 80053; 81001; 82550; 83605; 83690; 84484; 85025; 87040; 87154; 87428; 93005; 96361; 96374; 96375; 99285; J0696; J2405; J7030

== ENCOUNTER 2025-02-20 13:50 | Emergency (ER) | payer OTHER ==
[2025-02-20 15:07] LABS: BASOPHILS PERCENT AUTO 0.7 % (0.0-1.0); EOSINOPHILS ABSOLUTE AUTO 0.2 K/mm3 (0.0-0.4); EOSINOPHILS PERCENT AUTO 2.6 % (0.0-6.0); HEMATOCRIT 42.4 % (42.0-52.0); HEMOGLOBIN 14.5 gm/dl (14.0-18.0); IMMATURE GRAN ABSOLUTE AUTO 0.02 K/mm3 (0.00-0.05); IMMATURE GRAN PERCENT AUTO 0.3 % (0.0-0.4); LYMPHOCYTES ABSOLUTE AUTO 1.1 K/mm3 (1.0-4.8); LYMPHOCYTES PERCENT AUTO 18.9 % (24.0-44.0); MEAN CORPUSCULAR HEMOGLOBIN 30.4 pg (28.0-32.0); MEAN CORPUSCULAR HGB CONC 34.2 g/dl (32.0-36.0); MEAN CORPUSCULAR VOLUME 88.9 fl (83.0-99.0); MEAN PLATELET VOLUME 10.2 fl (9.4-12.4); MONOCYTES ABSOLUTE AUTO 0.6 K/mm3 (0.0-0.8); MONOCYTES PERCENT AUTO 9.4 % (0.0-8.0); NEUTROPHILS PERCENT AUTO 68.1 % (41.0-71.0); PLATELET COUNT,PLT 172 K/mm3 (150-400); RED BLOOD CELL COUNT 4.77 M/mm3 (4.52-5.90); WHITE BLOOD CELL COUNT,WBC 5.86 K/mm3 (3.9-11.3)
[2025-02-20] MEDS: Sodium Chloride 0.9% 1,000 ML IV ONE ×2 (15:20→16:54)
[2025-02-20 15:43] LABS: A/G RATIO 1.1 (1-2); ALBUMIN 3.4 g/dl (3.4-5.0); ANION GAP 14.1 (5-15); BILIRUBIN TOTAL 0.5 mg/dL (0.2-1.0); BUN/CREATININE RATIO 11.5 (14-18); CALCIUM 8.7 mg/dL (8.5-10.1); CREATININE 1.3 mg/dL (0.7-1.3); EST CRCL DRUG DOSING (CG) 60.92 mL/min; POTASSIUM,K 4.1 mEq/L (3.5-5.1); PROTEIN TOTAL,TP 6.4 g/dl (6.4-8.2)
[2025-02-20] MEDS: Insulin Regular, Human 100 Units/ML 10 ML Vial SUBCUT ONE (16:53)
[2025-02-20] MEDS: Albuterol/Ipratropium 3.0-0.5 MG/3 ML Neb Soln NEB ONE (17:26)
[2025-02-20 17:27] LABS: APPEARANCE,URINE CLEAR (Clear); BILIRUBIN,URINE NEGATIVE (Negative); COLOR,URINE YELLOW (Yellow); GLUCOSE,URINE 3+ (Negative); KETONES,URINE NEGATIVE (Negative); LEUKOCYTE ESTERASE,URINE NEGATIVE (Negative); NITRITE,URINE NEGATIVE (Negative); OCCULT BLOOD,URINE NEGATIVE (Negative); PH,URINE 5.5 (5.0-8.0); PROTEIN,URINE NEGATIVE (Negative); UROBILINOGEN,URINE 0.2 (0.2-1.0)
[2025-02-20 18:47] VITALS: BP 163/94; PULSE 63
== END 2025-02-20 18:40 | disposition home or self-care (01) ==
LOC: JD.ED 13:50
DX: E11.65 Type 2 diabetes mellitus with hyperglycemia (principal); I25.10 Atherosclerotic heart disease of native coronary artery without angina pectoris; I10 Essential (primary) hypertension; E78.00 Pure hypercholesterolemia, unspecified; E66.9 Obesity, unspecified; E11.40 Type 2 diabetes mellitus with diabetic neuropathy, unspecified; I48.91 Unspecified atrial fibrillation; K21.9 Gastro-esophageal reflux disease without esophagitis; Z86.16 Personal history of COVID-19; Z79.01 Long term (current) use of anticoagulants; Z79.899 Other long term (current) drug therapy; Z91.013 Allergy to seafood; Z88.8 Allergy status to other drugs, medicaments and biological substances; Z91.018 Allergy to other foods; Z91.041 Radiographic dye allergy status
CPT/HCPCS: 36415; 71045; 80053; 81003; 82010; 82947; 83930; 84484; 85025; 93005; 93246; 94640; 96360; 96361; 99285; J1815; J7030; J7620; 93010; 99284; A9270-GY